=== PATIENT | male | born 1960 | race Caucasian/White ===

== ENCOUNTER 2018-08-03 14:42 | Inpatient (IN) | payer MEDICAID ==
[2018-08-03] MEDS ORDERED: NORMAL SALINE 1000 ML 1,000 ML IV ONE (15:04)
[2018-08-03] MEDS ORDERED: LABETALOL HCL INJ 20 MG/4 ML DISP.SYRIN IV ONE (15:09)
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
--- NOTE | 2018-08-03 15:40 | EKG REPORT ---
SEVERITY:- ABNORMAL ECG - SINUS TACHYCARDIA VENTRICULAR PREMATURE COMPLEX INFERIOR INFARCT, AGE INDETERMINATE : Confirmed by: Kathy Courtney 03-Aug-2018 15:39:56
[2018-08-03 15:49] LABS: VENOUS BLOOD BASE EXCESS -2.1 mmol/L; VENOUS BLOOD HCO3 20.8 mmol/L (20-32); VENOUS BLOOD PCO2 31.4 mmHg (35-63); VENOUS BLOOD PH 7.44 (7.30-7.42)
[2018-08-03 15:50] LABS: ABSOLUTE BASOPHILS # (AUTO) 0.1 10^3/uL (0.0-0.2); ABSOLUTE MONOCYTES (AUTO) 0.8 10^3/uL (0.1-1.4); ABSOLUTE NEUT (AUTO) 5.6 10^3/uL (1.7-8.2); BASOPHILS % (AUTO) 0.9 % (0-2); EOSINOPHILS % (AUTO) 0.4 % (0-6); HEMATOCRIT 44.3 % (37.9-51.0); HEMOGLOBIN 15.6 g/dL (13.5-17.0); LYMPHOCYTES % (AUTO) 23.1 % (13-45); MEAN CORPUSCULAR HEMOGLOBIN 31.7 pg (27.0-33.4); MEAN CORPUSCULAR HGB CONC 35.2 g/dL (32.0-36.0); MEAN CORPUSCULAR VOLUME 90 fl (80-97); PLATELET COUNT 269 10^3/uL (150-450); RED BLOOD COUNT 4.91 10^6/uL (4.35-5.55); RED CELL DISTRIBUTION WIDTH 13.4 % (11.5-14.0); SEGMENTED NEUTROPHILS % (AUTO) 66.6 % (42-78); TOTAL CELLS COUNTED % (AUTO) 100 %; WHITE BLOOD COUNT 8.4 10^3/uL (4.0-10.5)
[2018-08-03 15:56] LABS: INTERNATIONAL RATION (INR) 0.93; PARTIAL THROMBOPLASTIN TIME 26.9 SEC (23.5-35.8); PROTHROMBIN TIME 12.9 SEC (11.4-15.4)
[2018-08-03 16:04] LABS: ALANINE AMINOTRANSFERASE 19 U/L (21-72); ALBUMIN 4.1 g/dL (3.5-5.0); ALKALINE PHOSPHATASE 135 U/L (38-126); ANION GAP 10 (5-19); ASPARTATE AMINO TRANSFERASE 20 U/L (17-59); BILIRUBIN,DIRECT 0.3 mg/dL (0.0-0.4); BILIRUBIN,TOTAL 0.7 mg/dL (0.2-1.3); BLOOD UREA NITROGEN 14 mg/dL (7-20); CALCIUM 9.8 mg/dL (8.4-10.2); CARBON DIOXIDE 24 mmol/L (22-30); CHLORIDE 102 mmol/L (98-107); CHOLESTEROL 190.95 mg/dL (0-200); CREATINE KINASE 112 U/L (55-170); GLUCOSE 381 mg/dL (75-110); POTASSIUM 4.1 mmol/L (3.6-5.0); TOTAL PROTEIN 7.1 g/dL (6.3-8.2); TRIGLYCERIDES 192 mg/dL (<150)
--- NOTE | 2018-08-03 16:08 | RADIOLOGY REPORT (SQ) ---
EXAM DESCRIPTION: CHEST SINGLE VIEW COMPLETED DATE/TIME: 08/03/2018 3:54 pm REASON FOR STUDY: Left-sided weakness COMPARISON: None. EXAM PARAMETERS: NUMBER OF VIEWS: One view. TECHNIQUE: Single frontal radiographic view of the chest acquired. RADIATION DOSE: NA LIMITATIONS: None. FINDINGS: LUNGS AND PLEURA: No acute infiltrates or effusions. MEDIASTINUM AND HILAR STRUCTURES: No masses. Contour normal. HEART AND VASCULAR STRUCTURES: The heart is normal with normal pulmonary vasculature. BONES: No acute findings. HARDWARE: None in the chest. OTHER: Chest leads in place. IMPRESSION: No acute disease. TECHNICAL DOCUMENTATION: JOB ID: [id number] 2010 [employer]- All Rights Reserved Reading location - IP/workstation name: [email or web address]
[2018-08-03 16:15] LABS: DIRECT LDL 144 mg/dL (<100)
[2018-08-03 16:16] LABS: VLDL CHOLESTEROL 38.4 mg/dL (10-31)
[2018-08-03 16:19] LABS: CREATINE KINASE MB 0.83 ng/mL (<4.55)
[2018-08-03 16:22] LABS: TROPONIN I < 0.012 ng/mL
--- NOTE | 2018-08-03 16:22 | RADIOLOGY REPORT (SQ) ---
EXAM DESCRIPTION: CT HEAD WITHOUT COMPLETED DATE/TIME: 08/03/2018 4:01 pm REASON FOR STUDY: Left-sided weakness COMPARISON: None. TECHNIQUE: Axial images acquired through the brain without intravenous contrast. Images reviewed wi th bone, brain and subdural windows. Images stored on PACS. All CT scanners at this facility use dose modulation, iterative reconstruction, and/or weight based d osing when appropriate to reduce radiation dose to as low as reasonably achievable (ALARA). [facility]: Dose Right [facility]: CareDose [facility]: Dose Right [facility]: Teradose 4D [facility]: [employer] Technologies RADIATION DOSE: CT Rad equipment meets quality standard of care and radiation dose reduction techniq ues were employed. CTDIvol: 53.2 mGy. DLP: 1070 mGy-cm. mGy. LIMITATIONS: None. FINDINGS: VENTRICLES: Normal size and contour. CEREBRUM: No masses. No hemorrhage. No midline shift. No evidence for acute infarction. Normal gra y/white matter differentiation. No areas of low density in the white matter. CEREBELLUM: No masses. No hemorrhage. No alteration of density. No evidence for acute infarction. EXTRAAXIAL SPACES: No fluid collections. No masses. ORBITS AND GLOBE: No intra- or extraconal masses. Normal contour of globe without masses. CALVARIUM: No fracture. PARANASAL SINUSES: No fluid or mucosal thickening. SOFT TISSUES: No mass or hematoma. OTHER: No other significant finding. IMPRESSION: NORMAL BRAIN CT WITHOUT CONTRAST. CONSIDERATION FOR MRI FOLLOW-UP WAS DISCUSSED. EVIDENCE OF ACUTE STROKE: NO. COMMENT: The case was discussed with Dr. Richter . Quality ID # [id number]: Final reports with documentation of one or more dose reduction techniques (e.g., Au tomated exposure control, adjustment of the mA and/or kV according to patient size, use of iterative reconstruction technique) TECHNICAL DOCUMENTATION: JOB ID: [id number] 2010 [email or web address]- All Rights Reserved Reading location - IP/workstation name: [email or web address]
[2018-08-03] MEDS ORDERED: INSULIN REG, HUMAN 100 UNIT/ML 3 ML VIAL (PYX) SUBCUT ONE (16:42)
[2018-08-03 17:31] LABS: ALCOHOL < 10 mg/dL (NONE DETECTED)
[2018-08-03 17:39] LABS: APPEARANCE,URINE CLEAR; BILIRUBIN,URINE NEGATIVE (NEGATIVE); COLOR,URINE YELLOW; GLUCOSE, URINE >=500 mg/dL (NEGATIVE); KETONES,URINE 20 mg/dL (NEGATIVE); LEUKOCYTE ESTERASE,URINE NEGATIVE (NEGATIVE); NITRITE,URINE NEGATIVE (NEGATIVE); PROTEIN,URINE 30 mg/dL (NEGATIVE); URINE SPECIFIC GRAVITY 1.035
[2018-08-03 17:53] LABS: URINE AMPHETAMINES SCREEN NEGATIVE; URINE BARBITURATES SCREEN NEGATIVE; URINE BENZODIAZEPINES SCREEN NEGATIVE; URINE COCAINE SCREEN NEGATIVE; URINE MARIJUANA (THC) SCREEN NEGATIVE; URINE METHADONE SCREEN NEGATIVE; URINE PHENCYCLIDINE SCREEN NEGATIVE
--- NOTE | 2018-08-03 18:15 | RADIOLOGY REPORT (SQ) ---
EXAM DESCRIPTION: MRI HEAD WITHOUT COMPLETED DATE/TIME: 08/03/2018 6:01 pm REASON FOR STUDY: stroke like sx's COMPARISON: None. TECHNIQUE: Multiplanar imaging includes non-contrasted T1, T2, FLAIR, and diffusion with ADC map seq uences. Images stored on PACS. LIMITATIONS: None. FINDINGS: ANATOMY: No anomalies. Normal vascular flow voids. Pituitary fossa normal. CSF SPACES: Normal in size and contour. No hemorrhage. CEREBRUM: Sulci and gyri normal in size and contour. Normal white matter signal on FLAIR imaging. No evidence of hemorrhage, mass, or extraaxial fluid collection. POSTERIOR FOSSA: There is a 15 mm area of abnormal diffusion in the right side of the zay. DIFFUSION IMAGING: See above. ORBITS: No masses. Globes normal. PARANASAL SINUSES: No fluid levels. Mucosa normal. OTHER: No other significant finding. IMPRESSION: There is an acute infarction involving the right side of the zay. EVIDENCE OF ACUTE STROKE: Yes RIGHT OUTFITTER CABIN COMMENT: Pertinent findings on the imaging study reported as a CRITICAL RESULT to ANNEL Guy t18:10 on 08/03/2018. TECHNICAL DOCUMENTATION: JOB ID: [id number] [employer]- All Rights Reserved Reading location - IP/workstation name: [email or web address]
[2018-08-03] MEDS ORDERED: DOCUSATE SODIUM 100 MG CAPSULE PO PRN (23:11)
[2018-08-03] MEDS ORDERED: MAGNESIUM HYDROXIDE SUSP 30 ML UDCUP PO PRN (23:11)
[2018-08-03] MEDS ORDERED: ONDANSETRON 4 MG TAB.RAPDIS PO PRN (23:11)
[2018-08-03] MEDS ORDERED: LABETALOL HCL INJ 20 MG/4 ML DISP.SYRIN IV PRN (23:11)
[2018-08-03] MEDS ORDERED: ACETAMINOPHEN 650 MG SUPP.RECT PR PRN (23:11)
[2018-08-03] MEDS ORDERED: ONDANSETRON HCL INJ/PF 4 MG/2 ML SDV IV PRN (23:11)
[2018-08-03] MEDS ORDERED: DEXTROSE 40% GEL 15 GM TUBE PO PRN ×2 (23:18)
[2018-08-03] MEDS ORDERED: GLUCAGON,HUMAN RECOMB 1 MG INJ IM PRN (23:18)
[2018-08-03] MEDS ORDERED: DEXTROSE 50%-WATER 25 GM/50 ML DISP.SYRIN IV PRN ×2 (23:18)
[2018-08-04] MEDS: INSULIN REG, HUMAN 100 UNIT/ML 3 ML VIAL (PYX) SUBCUT PRN ×5 (01:55→23:43)
[2018-08-04] MEDS: NICOTINE 21 MG/24 HR PATCH.TD24 TD PRN (02:44)
--- NOTE | 2018-08-04 04:22 | PDOC H&P ---
History of Present Illness Admission Date/PCP: 08/03/18 18:24 Patient complains of: Left-sided weakness History of Present Illness: MEHREEN ERICKSON is a 58 year old male with a two day history of continuous left- sided weakness. He admits that he awoke 2 days ago (08/01/2018) with weakness affecting his left upper and lower extremities. The effect was such that he had difficulty with ambulation due to "weakness and numbness" in his left leg. The numbness has been constant and unchanged in location or severity since onset and is rated as moderate to severe by the patient. He denies associated symptoms and has not had prior similar episodes. He has not identified any aggravating or ameliorating factors for his left-sided weakness or "numbness". He admits a past medical history of hypertension, diabetes, tobacco addiction and medical noncompliance. In the emergency room he was found to have an acute right posterior cerebral artery infarction involving the pontine structures. He was subsequently admitted for further evaluation and treatment on the stroke protocol program. Past Medical History Cardiac Medical History: Reports: Hypertension Denies: Coronary Artery Disease, DVT, Pulmonary Embolism Pulmonary Medical History: Denies: Asthma, Chronic Obstructive Pulmonary Disease (COPD) EENT Medical History: Reports: Cataracts - Juvenile cataracts removed as a child, Throat - Frequent sore throats as a child, Other - Tonsillectomy as a child Neurological Medical History: Denies: Migraine, Seizures Endocrine Medical History: Reports: Diabetes Mellitus Type 2 Denies: Hyperthyroidism, Hypothyroidism, Obesity Renal/ Medical History: Denies: Chronic Kidney Disease, Nephrolithiasis Malignancy Medical History: Reports: None GI Medical History: Denies: Cirrhosis, Hepatitis Musculoskeltal Medical History: Denies: Arthritis, Gout Skin Medical History: Reports: Other - Extensive krishna in remote past affecting the left upper extremity Denies: Eczema, Psoriasis Psychiatric Medical History: Reports: Depression, Tobacco Dependency Denies: Alcohol Dependency, Substance Abuse Traumatic Medical History: Reports: None Hematology: Denies: Anemia, Bleeding Tendencies Infectious Medical History: Reports: None Past Surgical History Past Surgical History: Reports: Tonsillectomy, Other - Bilateral cataract extractions with lens replacement, multiple skin grafts Social History Information Source: Patient Lives with: Alone Smoking Status: Current Every Day Smoker Cigarettes Packs Per Day: 1 Frequency of Alcohol Use: Social Hx Recreational Drug Use: No Drugs: None Hx Prescription Drug Abuse: No - Advance Directive Resuscitation Status: Full Code Surrogate healthcare decision maker:: None given Family History Family History: Patient was given up for adoption as a baby and lived as a foster child thro ughout his childhood. He has unaware of his natural mother or father or any of his natural family history. Parental Family History Reviewed: No Children Family History Reviewed: No Sibling(s) Family History Reviewed.: No Medication/Allergy Allergies/Adverse Reactions: No Known Allergies Allergy (Unverified 08/03/18 15:31) Review of Systems Constitutional: ABSENT: chills, fever(s), headache(s) Eyes: ABSENT: visual disturbances, other - Eye pain Ears: ABSENT: hearing changes, other - Ear pain Nose, Mouth, and Throat: ABSENT: mouth pain, sore throat Cardiovascular: ABSENT: chest pain, dyspnea on exertion, edema, orthropnea, palpitations Respiratory: ABSENT: cough, dyspnea Gastrointestinal: ABSENT: abdominal pain, constipation, diarrhea, nausea, vomiting Genitourinary: ABSENT: dysuria, hematuria Musculoskeletal: PRESENT: as per HPI, deformity - Left upper extremity status post extensive krishna, muscle weakness - Left sided weakness in both upper and lower extremities. ABSENT: back pain, joint swelling Integumentary: ABSENT: pruritus, rash Neurological: PRESENT: abnormal gait - Left leg weak and gives out with walking/weightbearing.. ABSENT: confusion, convulsions, memory loss, syncope, vertigo Psychiatric: ABSENT: anxiety, depression Endocrine: ABSENT: cold intolerance, heat intolerance Hematologic/Lymphatic: ABSENT: easy bleeding, easy bruising Physical Exam Vital Signs: Temp Pulse Resp BP Pulse Ox 87 18 165/86 H 97 08/03/18 20:38 08/03/18 20:23 08/03/18 20:23 08/03/18 20:23 Intake & Output 08/01/18 08/02/18 08/03/18 23:59 23:59 23:59 Intake Total 1000 Balance 1000 Weight 74.843 kg General appearance: PRESENT: no acute distress, cooperative Head exam: PRESENT: atraumatic, normocephalic Eye exam: PRESENT: EOMI. ABSENT: conjunctival injection, scleral icterus Ear exam: PRESENT: normal external ear exam. ABSENT: bleeding, drainage Mouth exam: PRESENT: dry mucosa, neck supple Neck exam: PRESENT: full ROM. ABSENT: carotid bruit, JVD, lymphadenopathy, meningismus, tenderness, thyromegaly, tracheal deviation Respiratory exam: PRESENT: clear to auscultation matilde, symmetrical, unlabored Cardiovascular exam: PRESENT: RRR. ABSENT: clicks, diastolic murmur, gallop, ru bs, systolic murmur Pulses: PRESENT: normal radial pulses, normal dorsalis pedis pul Vascular exam: PRESENT: normal capillary refill. ABSENT: pallor GI/Abdominal exam: PRESENT: normal bowel sounds, soft Rectal exam: PRESENT: deferred Extremities exam: ABSENT: joint swelling, pedal edema Musculoskeletal exam: PRESENT: deformity - Left hand status post multiple krishna with severe contractures of the fourth and fifth fingers and significant reduction in range of motion of the first second and third digits of the left hand., other - Significant weakness present on the left side with left upper extremity showing minimal ability to elevate at the shoulder and left lower extremity showing significant weakness in both flexion and extension throughout the limb. Proprioception is grossly intact bilaterally.. ABSENT: ambulatory, dislocation, tenderness Neurological exam: PRESENT: alert, oriented to person, oriented to place, oriented to time, oriented to situation, CN II-XII grossly intact, motor sensory deficit - See musculoskeletal exam above Psychiatric exam: PRESENT: appropriate affect, normal mood Skin exam: PRESENT: dry, intact, warm, other - Well-healed scars from skin grafts involving the left forearm and hand. ABSENT: jaundice, rash, urticaria Results Laboratory Results: 08/03/18 15:30 08/03/18 15:30 08/03/18 08/03/18 08/03/18 15:30 15:30 15:30 WBC 8.4 RBC 4.91 Hgb 15.6 Hct 44.3 MCV 90 MCH 31.7 MCHC 35.2 RDW 13.4 Plt Count 269 Seg Neutrophils % 66.6 Lymphocytes % 23.1 Monocytes % 9.0 Eosinophils % 0.4 Basophils % 0.9 Absolute Neutrophils 5.6 Absolute Lymphocytes 2.0 Absolute Monocytes 0.8 Absolute Eosinophils 0.0 Absolute Basophils 0.1 VBG pH 7.44 H VBG pCO2 31.4 L VBG HCO3 20.8 VBG Base Excess -2.1 Sodium 136.0 L Potassium 4.1 Chloride 102 Carbon Dioxide 24 Anion Gap 10 BUN 14 Creatinine 0.49 L Est GFR ( Amer) > 60 Est GFR (Non-Af Amer) > 60 Glucose 381 H Calcium 9.8 Total Bilirubin 0.7 AST 20 ALT 19 L Alkaline Phosphatase 135 H Total Protein 7.1 Albumin 4.1 Triglycerides 192 H Cholesterol 190.95 LDL Cholesterol Direct 144 H VLDL Cholesterol 38.4 H HDL Cholesterol 40 Urine Color Urine Appearance Urine pH Ur Specific [place] Urine Protein Urine Glucose (UA) Urine Ketones Urine Blood Urine Nitrite Ur Leukocyte Esterase Urine WBC (Auto) Urine RBC (Auto) 08/03/18 17:30 WBC RBC Hgb Hct MCV MCH MCHC RDW Plt Count Seg Neutrophils % Lymphocytes % Monocytes % Eosinophils % Basophils % Absolute Neutrophils Absolute Lymphocytes Absolute Monocytes Absolute Eosinophils Absolute Basophils VBG pH VBG pCO2 VBG HCO3 VBG Base Excess Sodium Potassium Chloride Carbon Dioxide Anion Gap BUN Creatinine Est GFR ( Amer) Est GFR (Non-Af Amer) Glucose Calcium Total Bilirubin AST ALT Alkaline Phosphatase Total Protein Albumin Triglycerides Cholesterol LDL Cholesterol Direct VLDL Cholesterol HDL Cholesterol Urine Color YELLOW Urine Appearance CLEAR Urine pH 6.0 Ur Specific [place] 1.035 Urine Protein 30 H Urine Glucose (UA) >=500 H Urine Ketones 20 H Urine Blood NEGATIVE Urine Nitrite NEGATIVE Ur Leukocyte Esterase NEGATIVE Urine WBC (Auto) 1 Urine RBC (Auto) 0 08/03/18 08/03/18 15:30 15:30 Creatine Kinase 112 CK-MB (CK-2) 0.83 Troponin I < 0.012 Impressions: Chest X-Ray 08/03/18 15:03 IMPRESSION: No acute disease. Head CT 08/03/18 15:03 IMPRESSION: NORMAL BRAIN CT WITHOUT CONTRAST. CONSIDERATION FOR MRI FOLLOW- UP WAS DISCUSSED. EVIDENCE OF ACUTE STROKE: NO. Head MRI 08/03/18 16:16 IMPRESSION: There is an acute infarction involving the right side of the zay. 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 (2) Diabetes mellitus type 2 in nonobese Is this a current diagnosis for this admission?: Yes Plan: Patient's hemoglobin A1c was 10.5. His diabetic therapy will be changed to Lantus starting at 12 units subcu twice daily and sliding scale regular insulin before meals and at bedtime. A dietary consultation will be obtained to better educate the patient for care of his diabetes and hypertension. (3) Hypertension Qualifiers: Hypertension type: unspecified Qualified Code(s): I10 - Essential (primary) hypertension Is this a current diagnosis for this admission?: Yes Plan: Patient will be returned to his recommended antihypertensive therapy. This will be reevaluated over his hospital course for efficacy and adjustments made as required. (4) Tobacco use disorder, moderate, dependence Is this a current diagnosis for this admission?: Yes Plan: Patient has been advised to quit smoking. Smoking cessation counseling has been provided and he will have available a nicotine replacement patch should he wish to use it. - Time Time Spent: 30 to 50 Minutes Critical Time spent with patient: Less than 15 minutes Smoking Cessation Education: 3 to 10 minutes Medications reviewed and adjusted accordingly: Yes Anticipated discharge: Home with Homehealth, SNF, Acute Rehab - Inpatient Certification Based on my medical assessment, after consideration of the patient's comorbidities, presenting symptoms, or acuity I expect that the services needed warrant INPATIENT care.: Yes I certify that my determination is in accordance with my understanding of Medicare's requirements for reasonable and necessary INPATIENT services [42 CFR 412.3e].: Yes Medical Necessity: Significant Comorbidiites Make Outpatient Treatment Too Risky, Need Close Monitoring Due to Risk of Patient Decompensation, Need for Neurological Checks, Risk of Complication if Not Cared For in Hospital
[2018-08-04] MEDS: HEPARIN SOD (PORCINE) 5,000 UNIT/ML 1 ML SYRINGE SUBCUT SCH ×3 (05:17→21:30)
[2018-08-04 05:24] LABS: HEMATOCRIT 42.3 % (37.9-51.0); HEMOGLOBIN 14.8 g/dL (13.5-17.0); MEAN CORPUSCULAR HEMOGLOBIN 31.6 pg (27.0-33.4); MEAN CORPUSCULAR HGB CONC 35.1 g/dL (32.0-36.0); MEAN CORPUSCULAR VOLUME 90 fl (80-97); PLATELET COUNT 270 10^3/uL (150-450); RED CELL DISTRIBUTION WIDTH 13.2 % (11.5-14.0)
[2018-08-04 06:41] LABS: ANION GAP 8 (5-19); BLOOD UREA NITROGEN 14 mg/dL (7-20); CALCIUM 9.8 mg/dL (8.4-10.2); CARBON DIOXIDE 24 mmol/L (22-30); CHLORIDE 106 mmol/L (98-107); CHOLESTEROL 173.81 mg/dL (0-200); GLUCOSE 209 mg/dL (75-110); POTASSIUM 3.7 mmol/L (3.6-5.0); SODIUM 137.7 mmol/L (137-145); TRIGLYCERIDES 167 mg/dL (<150)
[2018-08-04 06:52] LABS: DIRECT LDL 120 mg/dL (<100)
[2018-08-04 06:54] LABS: VLDL CHOLESTEROL 33.4 mg/dL (10-31)
[2018-08-04] MEDS: ASPIRIN/DIPYRIDAMOLE 25-200 MG 1 CAP.SR CPMP.12HR PO SCH ×2 (09:19→21:31)
[2018-08-04] MEDS: FAMOTIDINE 20 MG TABLET PO SCH ×2 (09:19→21:30)
[2018-08-04] MEDS: INSULIN GLARGINE,HUM.REC.ANLOG 300 UNIT/3 ML INSULN.PEN SUBCUT SCH ×2 (10:43→21:29)
[2018-08-04] MEDS: ACETAMINOPHEN 325 MG TABLET PO PRN (15:34)
--- NOTE | 2018-08-04 16:30 | PDOC PROGRESS REPORT ---
Subjective Progress Note for:: 08/04/18 Subjective:: No adverse events overnight. No new complaints. He passed a swallow evaluation is not had any trouble swallowing. Said he still does not have much use of his left arm. Said he feels like he has to drag his left leg when he walks but he still has sensation in that leg. He denies any palpitations. He says he has no history of cardiac arrhythmia. He has had no evidence of an arrhythmia on the monitor. Reason For Visit: ACUTE RIGHT POSTERIOR CEREBRAL ARTERY INFARCTION Physical Exam Vital Signs: Temp Pulse Resp BP Pulse Ox 97.4 F 89 18 175/94 H 99 08/04/18 11:28 08/04/18 12:00 08/04/18 12:00 08/04/18 12:00 08/04/18 12:00 Intake & Output 08/03/18 08/04/18 08/05/18 06:59 06:59 06:59 Intake Total 1000 Output Total 125 Balance 875 Weight 80.9 kg General appearance: PRESENT: no acute distress, cooperative, disheveled Eye exam: PRESENT: EOMI, PERRLA Respiratory exam: PRESENT: clear to auscultation matilde, symmetrical, unlabored. ABSENT: accessory muscle use, rales, rhonchi, tachypnea, wheezes Cardiovascular exam: PRESENT: RRR, +S1, +S2 Vascular exam: PRESENT: normal capillary refill GI/Abdominal exam: PRESENT: normal bowel sounds, soft. ABSENT: distended, guar ding, rebound, tenderness Extremities exam: ABSENT: clubbing, pedal edema Musculoskeletal exam: PRESENT: normal inspection. ABSENT: deformity Neurological exam: PRESENT: alert, awake, oriented to person, oriented to place, oriented to time, oriented to situation, motor sensory deficit - He has a little bit of a right-sided facial droop but his speech is normal. He has 3 out of 5 strength at the left shoulder and elbow, and 1 to 2 out of 5 absence management consultant strength in the left hand. He can lift his left leg up against gravity but cannot hold it up. Psychiatric exam: PRESENT: appropriate affect, normal mood Skin exam: PRESENT: dry, warm Results Laboratory Results: 08/04/18 04:22 08/04/18 04:22 08/03/18 08/03/18 08/04/18 15:30 17:30 04:22 WBC 10.0 RBC 4.70 Hgb 14.8 Hct 42.3 MCV 90 MCH 31.6 MCHC 35.1 RDW 13.2 Plt Count 270 Sodium 136.0 L Potassium 4.1 Chloride 102 Carbon Dioxide 24 Anion Gap 10 BUN 14 Creatinine 0.49 L Est GFR ( Amer) > 60 Est GFR (Non-Af Amer) > 60 Glucose 381 H Calcium 9.8 Total Bilirubin 0.7 AST 20 ALT 19 L Alkaline Phosphatase 135 H Total Protein 7.1 Albumin 4.1 Triglycerides 192 H Cholesterol 190.95 LDL Cholesterol Direct 144 H VLDL Cholesterol 38.4 H HDL Cholesterol 40 Urine Color YELLOW Urine Appearance CLEAR Urine pH 6.0 Ur Specific [place] 1.035 Urine Protein 30 H Urine Glucose (UA) >=500 H Urine Ketones 20 H Urine Blood NEGATIVE Urine Nitrite NEGATIVE Ur Leukocyte Esterase NEGATIVE Urine WBC (Auto) 1 Urine RBC (Auto) 0 08/04/18 04:22 WBC RBC Hgb Hct MCV MCH MCHC RDW Plt Count Sodium 137.7 Potassium 3.7 Chloride 106 Carbon Dioxide 24 Anion Gap 8 BUN 14 Creatinine 0.56 Est GFR ( Amer) > 60 Est GFR (Non-Af Amer) > 60 Glucose 209 H Calcium 9.8 Total Bilirubin AST ALT Alkaline Phosphatase Total Protein Albumin Triglycerides 167 H Cholesterol 173.81 LDL Cholesterol Direct 120 H VLDL Cholesterol 33.4 H HDL Cholesterol 32 L Urine Color Urine Appearance Urine pH Ur Specific [place] Urine Protein Urine Glucose (UA) Urine Ketones Urine Blood Urine Nitrite Ur Leukocyte Esterase Urine WBC (Auto) Urine RBC (Auto) 08/03/18 08/03/18 15:30 15:30 Creatine Kinase 112 CK-MB (CK-2) 0.83 Troponin I < 0.012 Impressions: Chest X-Ray 08/03/18 15:03 IMPRESSION: No acute disease. Head CT 08/03/18 15:03 IMPRESSION: NORMAL BRAIN CT WITHOUT CONTRAST. CONSIDERATION FOR MRI FOLLOW- UP WAS DISCUSSED. EVIDENCE OF ACUTE STROKE: NO. Head MRI 08/03/18 16:16 IMPRESSION: There is an acute infarction involving the right side of the zay. EVIDENCE OF ACUTE STROKE: Yes RIGHT ECONOMETRICIAN Assessment & Plan - Diagnosis (1) Acute ischemic right posterior cerebral artery (ECONOMETRICIAN) stroke Is this a current diagnosis for this admission?: Yes Plan: Were getting an MRA of the head and neck to complete his stroke workup. Echocardiogram has not been ordered because he does not have any evidence of an embolic stroke. He is also have no evidence of arrhythmia or any history of an arrhythmia. Order has been placed for consult for acute rehab. Permissive hypertension for now. We will work to get his blood sugar under better control. Continue Aggrenox and statin. (2) Diabetes mellitus type 2 in nonobese Is this a current diagnosis for this admission?: Yes Plan: Currently on a sliding scale. Will probably need to adjust his coverage further. (3) Hypertension Qualifiers: Hypertension type: unspecified Qualified Code(s): I10 - Essential (primary) hypertension Is this a current diagnosis for this admission?: Yes Plan: Currently permissive hypertension. Tomorrow we will probably start lowering his blood pressure little bit more. - Time Time Spent with patient: 15-24 minutes
--- NOTE | 2018-08-04 16:59 | RADIOLOGY REPORT (SQ) ---
EXAM DESCRIPTION: MRA NECK WITHOUT COMPLETED DATE/TIME: 08/04/2018 4:43 pm REASON FOR STUDY: acute CVA COMPARISON: None. TECHNIQUE: Axial 2-D volume acquisition imaging through the extracranial carotid and vertebral arter ies with reformatting using 3-D MIPS. LIMITATIONS: None. FINDINGS: RIGHT CAROTID ARTERY: No stenosis or occlusive changes. Limited visualization of the orig in. LEFT CAROTID ARTERY: No stenosis or occlusive changes. Limited visualization of the origin. VERTEBRAL ARTERY: B left vertebral and basilar artery are normal. The right vertebral is not identif ied. Either hypoplastic, occluded, or with reverse flow. . OTHER: No other significant finding. IMPRESSION: NO SIGNIFICANT STENOSIS. Basal artery and left vertebral artery widely patent. Nonvisu alization of the right vertebral. COMMENT: Quality ID #[id number]: Measurements of distal internal carotid diameter were used as the denomin ator for stenosis measurement. TECHNICAL DOCUMENTATION: JOB ID: [id number] [employer]- All Rights Reserved Reading location - IP/workstation name: [email or web address]
--- NOTE | 2018-08-04 17:04 | RADIOLOGY REPORT (SQ) ---
EXAM DESCRIPTION: MRA HEAD WITHOUT COMPLETED DATE/TIME: 08/04/2018 4:43 pm REASON FOR STUDY: acute CVA COMPARISON: None. TECHNIQUE: Axial 3-D [id number] acquisition imaging performed through the brain in the area of t he [place]. Images reformatted using 3-D MIPS. LIMITATIONS: None. FINDINGS: SOURCE IMAGES: No unexpected findings on source images. No large masses. 3-D MIP: No aneurysm. No occlusions. No significant stenosis. OTHER: No other significant finding. IMPRESSION: NORMAL MRA OF THE [place]. TECHNICAL DOCUMENTATION: JOB ID: [id number] [employer]- All Rights Reserved Reading location - IP/workstation name: [email or web address]
[2018-08-04] MEDS: ATORVASTATIN CALCIUM 10 MG TABLET PO SCH (21:31)
[2018-08-05 05:06] LABS: HEMATOCRIT 40.8 % (37.9-51.0); HEMOGLOBIN 14.3 g/dL (13.5-17.0); MEAN CORPUSCULAR HEMOGLOBIN 31.4 pg (27.0-33.4); MEAN CORPUSCULAR HGB CONC 35.1 g/dL (32.0-36.0); MEAN CORPUSCULAR VOLUME 90 fl (80-97); PLATELET COUNT 251 10^3/uL (150-450); RED BLOOD COUNT 4.56 10^6/uL (4.35-5.55); WHITE BLOOD COUNT 8.8 10^3/uL (4.0-10.5)
[2018-08-05 05:33] LABS: ANION GAP 8 (5-19); BLOOD UREA NITROGEN 16 mg/dL (7-20); CALCIUM 9.3 mg/dL (8.4-10.2); CARBON DIOXIDE 24 mmol/L (22-30); CHLORIDE 107 mmol/L (98-107); GLUCOSE 197 mg/dL (75-110); SODIUM 139.3 mmol/L (137-145)
[2018-08-05 05:39] LABS: POTASSIUM 3.8 mmol/L (3.6-5.0)
[2018-08-05] MEDS: HEPARIN SOD (PORCINE) 5,000 UNIT/ML 1 ML SYRINGE SUBCUT SCH ×3 (06:21→21:12)
[2018-08-05] MEDS: NICOTINE 21 MG/24 HR PATCH.TD24 TD PRN (06:36)
[2018-08-05] MEDS: ACETAMINOPHEN 325 MG TABLET PO PRN ×2 (08:29→15:53)
[2018-08-05] MEDS: INSULIN REG, HUMAN 100 UNIT/ML 3 ML VIAL (PYX) SUBCUT PRN ×4 (08:31→21:51)
[2018-08-05] MEDS: FAMOTIDINE 20 MG TABLET PO SCH ×2 (09:23→21:16)
[2018-08-05] MEDS: ASPIRIN/DIPYRIDAMOLE 25-200 MG 1 CAP.SR CPMP.12HR PO SCH ×2 (09:23→21:16)
[2018-08-05] MEDS: INSULIN GLARGINE,HUM.REC.ANLOG 300 UNIT/3 ML INSULN.PEN SUBCUT SCH ×2 (09:24→21:14)
[2018-08-05] MEDS ORDERED: LISINOPRIL 5 MG TABLET PO ONE (13:37)
--- NOTE | 2018-08-05 16:43 | PDOC PROGRESS REPORT ---
Subjective Progress Note for:: 08/05/18 Subjective:: No adverse events overnight. He said he feels like his left leg strength is little bit better and he walks 60 feet with physical therapy today, but he feels like his left arm is unchanged from yesterday. His blood pressure come down some this morning but is risen back up as the day is going on. He has no headache or visual changes. Reason For Visit: ACUTE RIGHT POSTERIOR CEREBRAL ARTERY INFARCTION Physical Exam Vital Signs: Temp Pulse Resp BP Pulse Ox 98.3 F 88 16 145/76 H 96 08/05/18 15:15 08/05/18 16:00 08/05/18 16:00 08/05/18 16:00 08/05/18 16:00 Intake & Output 08/04/18 08/05/18 08/06/18 06:59 06:59 06:59 Intake Total 1000 360 592 Output Total 125 2025 200 Balance 875 -1665 392 Weight 80.9 kg 81.6 kg General appearance: PRESENT: no acute distress, cooperative, disheveled Eye exam: PRESENT: EOMI, PERRLA Respiratory exam: PRESENT: clear to auscultation matilde, symmetrical, unlabored. ABSENT: accessory muscle use, rales, rhonchi, tachypnea, wheezes Cardiovascular exam: PRESENT: RRR, +S1, +S2 Vascular exam: PRESENT: normal capillary refill GI/Abdominal exam: PRESENT: normal bowel sounds, soft. ABSENT: distended, guarding, rebound, tenderness Extremities exam: ABSENT: clubbing, pedal edema. He does have some possible trace right lower extremity edema compared to the left Musculoskeletal exam: PRESENT: normal inspection. ABSENT: deformity Neurological exam: PRESENT: alert, awake, oriented to person, oriented to place, oriented to time, oriented to situation, motor sensory deficit - He has a little bit of a right-sided facial droop but his speech is normal. He has 3 out of 5 strength at the left shoulder and elbow, and 1 to 2 out of 5 gardener florist strength in the left hand. He can lift his left leg up against gravity and hold it up a few inches off the chair for several seconds Psychiatric exam: PRESENT: appropriate affect, normal mood Skin exam: PRESENT: dry, warm Results Laboratory Results: 08/05/18 04:54 08/05/18 04:54 08/05/18 08/05/18 04:54 04:54 WBC 8.8 RBC 4.56 Hgb 14.3 Hct 40.8 MCV 90 MCH 31.4 MCHC 35.1 RDW 13.0 Plt Count 251 Sodium 139.3 Potassium 3.8 Chloride 107 Carbon Dioxide 24 Anion Gap 8 BUN 16 Creatinine 0.54 Est GFR ( Amer) > 60 Est GFR (Non-Af Amer) > 60 Glucose 197 H Calcium 9.3 08/03/18 08/03/18 15:30 15:30 Creatine Kinase 112 CK-MB (CK-2) 0.83 Troponin I < 0.012 Impressions: Chest X-Ray 08/03/18 15:03 IMPRESSION: No acute disease. Head CT 08/03/18 15:03 IMPRESSION: NORMAL BRAIN CT WITHOUT CONTRAST. CONSIDERATION FOR MRI FOLLOW- UP WAS DISCUSSED. EVIDENCE OF ACUTE STROKE: NO. Head MRI 08/03/18 16:16 IMPRESSION: There is an acute infarction involving the right side of the zay. 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 Neck MRA 08/04/18 00:00 IMPRESSION: NO SIGNIFICANT STENOSIS. Basal artery and left vertebral artery widely patent. Nonvisualization of the right vertebral. Assessment & Plan - Diagnosis (1) Acute ischemic right posterior cerebral artery (LIVESTOCK SALES REPRESENTATIVE) stroke Is this a current diagnosis for this admission?: Yes Plan: MRA of the neck showed what could be an occluded right vertebral artery, echocardiogram has not been ordered because he does not have any evidence of an embolic stroke. He is also have no evidence of arrhythmia or any history of an arrhythmia. Order has been placed for consult for acute rehab. He was on lisinopril and HCTZ at home, I have restarted lisinopril little bit lower dose of what he was on at home. We will work to get his blood sugar under better control, I have increased his Lantus. Continue Aggrenox and statin. (2) Diabetes mellitus type 2 in nonobese Is this a current diagnosis for this admission?: Yes Plan: Currently on a sliding scale. I increased his Lantus dosing today. (3) Hypertension Qualifiers: Hypertension type: unspecified Qualified Code(s): I10 - Essential (primary) hypertension Is this a current diagnosis for this admission?: Yes Plan: Restarted his home lisinopril little bit lower dose of what he was on at home. (4) Right leg swelling Is this a current diagnosis for this admission?: Yes Plan: Ordered a venous Doppler ultrasound to evaluate for DVT - Time Time Spent with patient: 15-24 minutes
--- NOTE | 2018-08-05 19:42 | RADIOLOGY REPORT (SQ) ---
EXAM DESCRIPTION: VENOUS UNILATERAL LOWER COMPLETED DATE/TIME: 08/05/2018 7:32 pm REASON FOR STUDY: right leg edema COMPARISON: None. TECHNIQUE: Dynamic and static singleton scale and color images acquired of the right leg venous system. S elected spectral images acquired with additional compression and augmentation maneuvers. The contrala teral common femoral vein and saphenofemoral junction were also imaged. Images stored on PACS. LIMITATIONS: None. FINDINGS: COMMON FEMORAL: Normal phasicity, compression and augmentation. No visualized echogenic ma terial on singleton scale. No defects on color images. FEMORAL: Normal compression and augmentation. No visualized echogenic material on singleton scale. No defe cts on color images. POPLITEAL: Normal compression, augmentation. No visualized echogenic material on singleton scale. No defec ts on color images. CALF VESSELS: Normal compression, augmentation. No visualized echogenic material on singleton scale. No de fects on color images. GSV and SSV: Normal compression, augmentation. No visualized echogenic material on singleton scale. No def ects on color images. ANY DEEP VENOUS INSUFFICIENCY: Not evaluated. ANY EVIDENCE OF POPLITEAL CYST: No. OTHER: No other significant finding. CONTRALATERAL COMMON FEMORAL VEIN AND SAPHENOFEMORAL JUNCTION: Normal phasicity, compression and augmentation. No visualized echogenic material on singleton scale. No de fects on color images. IMPRESSION: NO EVIDENCE DVT OR SVT IN THE RIGHT LEG. TECHNICAL DOCUMENTATION: JOB ID: [id number] [email or web address]- All Rights Reserved Reading location - IP/workstation name: [email or web address]
[2018-08-05] MEDS: ATORVASTATIN CALCIUM 10 MG TABLET PO SCH (21:16)
[2018-08-05] MEDS: TRAMADOL HCL 50 MG TABLET PO PRN (21:50)
[2018-08-06 04:49] LABS: HEMOGLOBIN 14.2 g/dL (13.5-17.0); MEAN CORPUSCULAR HEMOGLOBIN 31.7 pg (27.0-33.4); MEAN CORPUSCULAR HGB CONC 35.5 g/dL (32.0-36.0); MEAN CORPUSCULAR VOLUME 89 fl (80-97); PLATELET COUNT 264 10^3/uL (150-450); RED BLOOD COUNT 4.49 10^6/uL (4.35-5.55); RED CELL DISTRIBUTION WIDTH 13.2 % (11.5-14.0); WHITE BLOOD COUNT 9.1 10^3/uL (4.0-10.5)
[2018-08-06 05:15] LABS: ANION GAP 9 (5-19); BLOOD UREA NITROGEN 20 mg/dL (7-20); CALCIUM 9.3 mg/dL (8.4-10.2); CARBON DIOXIDE 24 mmol/L (22-30); CHLORIDE 104 mmol/L (98-107); GLUCOSE 240 mg/dL (75-110); POTASSIUM 3.8 mmol/L (3.6-5.0); SODIUM 137.4 mmol/L (137-145)
[2018-08-06] MEDS: HEPARIN SOD (PORCINE) 5,000 UNIT/ML 1 ML SYRINGE SUBCUT SCH ×3 (06:10→21:23)
[2018-08-06] MEDS: TRAMADOL HCL 50 MG TABLET PO PRN ×3 (06:12→20:25)
[2018-08-06] MEDS: INSULIN REG, HUMAN 100 UNIT/ML 3 ML VIAL (PYX) SUBCUT PRN ×4 (06:51→21:22)
[2018-08-06] MEDS: LISINOPRIL 10 MG TABLET PO SCH (09:29)
[2018-08-06] MEDS: INSULIN GLARGINE,HUM.REC.ANLOG 300 UNIT/3 ML INSULN.PEN SUBCUT SCH ×2 (09:29→21:24)
[2018-08-06] MEDS: NICOTINE 21 MG/24 HR PATCH.TD24 TD PRN (09:29)
[2018-08-06] MEDS: FAMOTIDINE 20 MG TABLET PO SCH ×2 (09:29→21:22)
[2018-08-06] MEDS: ASPIRIN/DIPYRIDAMOLE 25-200 MG 1 CAP.SR CPMP.12HR PO SCH ×2 (09:29→21:22)
[2018-08-06] MEDS: METFORMIN HCL 500 MG TABLET PO SCH (16:18)
--- NOTE | 2018-08-06 16:29 | PDOC PROGRESS REPORT ---
Subjective Progress Note for:: 08/06/18 Subjective:: No adverse events overnight. He said he did feels like he is got better use of his left leg and walked 80 feet with physical therapy today. He says he feels like he can actually step higher and bring his leg up when he walks. He said he feels like he is got a little bit better use of his left upper extremity, and while he does not have much hammer repairer he says he feels like his got more movement in his fingers today. Reason For Visit: ACUTE RIGHT POSTERIOR CEREBRAL ARTERY INFARCTION Physical Exam Vital Signs: Temp Pulse Resp BP Pulse Ox 98.3 F 93 18 115/73 97 08/06/18 15:20 08/06/18 15:20 08/06/18 15:20 08/06/18 15:20 08/06/18 15:20 Intake & Output 08/05/18 08/06/18 08/07/18 06:59 06:59 06:59 Intake Total 360 1312 237 Output Total 5 1000 100 Balance -1665 312 137 Weight 81.6 kg 82.7 kg General appearance: PRESENT: no acute distress, cooperative, disheveled Eye exam: PRESENT: EOMI, PERRLA Respiratory exam: PRESENT: clear to auscultation matilde, symmetrical, unlabored. ABSENT: accessory muscle use, rales, rhonchi, tachypnea, wheezes Cardiovascular exam: PRESENT: RRR, +S1, +S2 Vascular exam: PRESENT: normal capillary refill GI/Abdominal exam: PRESENT: normal bowel sounds, soft. ABSENT: distended, guarding, rebound, tenderness Extremities exam: ABSENT: clubbing, pedal edema. He does have some possible trace right lower extremity edema compared to the left Musculoskeletal exam: PRESENT: normal inspection. ABSENT: deformity Neurological exam: PRESENT: alert, awake, oriented to person, oriented to place, oriented to time, oriented to situation, motor sensory deficit - He has a little bit of a right-sided facial droop but his speech is normal. He has 3 out of 5 strength at the left shoulder and elbow, and 2 out of 5 hammer repairer strength in the left hand. He can lift his left leg up against gravity and hold it up several inches off the chair for several seconds Psychiatric exam: PRESENT: appropriate affect, normal mood Skin exam: PRESENT: dry, warm Results Laboratory Results: 08/06/18 04:26 08/06/18 04:26 08/06/18 08/06/18 04:26 04:26 WBC 9.1 RBC 4.49 Hgb 14.2 Hct 40.0 MCV 89 MCH 31.7 MCHC 35.5 RDW 13.2 Plt Count 264 Sodium 137.4 Potassium 3.8 Chloride 104 Carbon Dioxide 24 Anion Gap 9 BUN 20 Creatinine 0.59 Est GFR ( Amer) > 60 Est GFR (Non-Af Amer) > 60 Glucose 240 H Calcium 9.3 08/03/18 08/03/18 15:30 15:30 Creatine Kinase 112 CK-MB (CK-2) 0.83 Troponin I < 0.012 Impressions: Chest X-Ray 08/03/18 15:03 IMPRESSION: No acute disease. Head CT 08/03/18 15:03 IMPRESSION: NORMAL BRAIN CT WITHOUT CONTRAST. CONSIDERATION FOR MRI FOLLOW- UP WAS DISCUSSED. EVIDENCE OF ACUTE STROKE: NO. Head MRI 08/03/18 16:16 IMPRESSION: There is an acute infarction involving the right side of the zay. 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 Neck MRA 08/04/18 00:00 IMPRESSION: NO SIGNIFICANT STENOSIS. Basal artery and left vertebral artery widely patent. Nonvisualization of the right vertebral. Venous Doppler Study 08/05/18 00:00 IMPRESSION: NO EVIDENCE DVT OR SVT IN THE RIGHT LEG. Assessment & Plan - Diagnosis (1) Acute ischemic right posterior cerebral artery (DATABASE PROGRAMMER ANALYST) stroke Is this a current diagnosis for this admission?: Yes Plan: Continue Aggrenox and statin. I increase his Lantus yesterday to help keep his blood sugars down. I am restarting his metformin today. Start him back on low- dose lisinopril yesterday and his blood pressures have improved. We are c urrently awaiting acute rehab placement. I am told that he was accepted at [facility] and they can take him Thursday afternoon. Continue physical therapy and occupational therapy in the interim. (2) Diabetes mellitus type 2 in nonobese Is this a current diagnosis for this admission?: Yes Plan: Currently on a sliding scale. I increased his Lantus dosing. I am going to restart his metformin as well. (3) Hypertension Qualifiers: Hypertension type: unspecified Qualified Code(s): I10 - Essential (primary) hypertension Is this a current diagnosis for this admission?: Yes Plan: This improved after restarting lisinopril. Blood pressures now well controlled. - Time Time Spent with patient: 15-24 minutes
[2018-08-06] MEDS: ATORVASTATIN CALCIUM 10 MG TABLET PO SCH (21:22)
[2018-08-07] MEDS: HEPARIN SOD (PORCINE) 5,000 UNIT/ML 1 ML SYRINGE SUBCUT SCH ×3 (05:39→22:23)
[2018-08-07] MEDS: INSULIN REG, HUMAN 100 UNIT/ML 3 ML VIAL (PYX) SUBCUT PRN ×3 (08:19→17:51)
[2018-08-07] MEDS: METFORMIN HCL 500 MG TABLET PO SCH ×2 (08:19→16:19)
[2018-08-07] MEDS: LISINOPRIL 10 MG TABLET PO SCH (10:21)
[2018-08-07] MEDS: FAMOTIDINE 20 MG TABLET PO SCH ×2 (10:21→22:23)
[2018-08-07] MEDS: ASPIRIN/DIPYRIDAMOLE 25-200 MG 1 CAP.SR CPMP.12HR PO SCH ×2 (10:21→22:24)
[2018-08-07] MEDS: INSULIN GLARGINE,HUM.REC.ANLOG 300 UNIT/3 ML INSULN.PEN SUBCUT SCH ×2 (10:21→22:23)
[2018-08-07] MEDS: TRAMADOL HCL 50 MG TABLET PO PRN ×2 (10:26→16:17)
--- NOTE | 2018-08-07 16:17 | PDOC PROGRESS REPORT ---
Subjective Progress Note for:: 08/07/18 Subjective:: No adverse events overnight. He is holding his shoulder and arm up against gravity a bit better. Blood pressure control is been good. We restarted his metformin yesterday and his blood glucoses have improved. He has had no trouble eating or drinking. Reason For Visit: ACUTE RIGHT POSTERIOR CEREBRAL ARTERY INFARCTION Physical Exam Vital Signs: Temp Pulse Resp BP Pulse Ox 99.6 F 92 18 152/75 H 100 08/07/18 12:36 08/07/18 14:00 08/07/18 12:36 08/07/18 12:36 08/07/18 12:36 Intake & Output 08/06/18 08/07/18 08/08/18 06:59 06:59 06:59 Intake Total 1312 774 Output Total 1000 1750 Balance 312 -976 Weight 82.7 kg 82.6 kg General appearance: PRESENT: no acute distress, cooperative, disheveled Eye exam: PRESENT: EOMI, PERRLA Respiratory exam: PRESENT: clear to auscultation matilde, symmetrical, unlabored. ABSENT: accessory muscle use, rales, rhonchi, tachypnea, wheezes Cardiovascular exam: PRESENT: RRR, +S1, +S2 Vascular exam: PRESENT: normal capillary refill GI/Abdominal exam: PRESENT: normal bowel sounds, soft. ABSENT: distended, guarding, rebound, tenderness Extremities exam: ABSENT: clubbing, pedal edema. He does have some possible trace right lower extremity edema compared to the left Musculoskeletal exam: PRESENT: normal inspection. ABSENT: deformity Neurological exam: PRESENT: alert, awake, oriented to person, oriented to place, oriented to time, oriented to situation, motor sensory deficit - He has a little bit of a right-sided facial droop but his speech is normal. 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 He can lift his left leg up against gravity and hold it up several inches off the chair for several seconds Psychiatric exam: PRESENT: appropriate affect, normal mood Skin exam: PRESENT: dry, warm Results Laboratory Results: 08/06/18 04:26 08/06/18 04:26 08/03/18 08/03/18 15:30 15:30 Creatine Kinase 112 CK-MB (CK-2) 0.83 Troponin I < 0.012 Impressions: Chest X-Ray 08/03/18 15:03 IMPRESSION: No acute disease. Head CT 08/03/18 15:03 IMPRESSION: NORMAL BRAIN CT WITHOUT CONTRAST. CONSIDERATION FOR MRI FOLLOW- UP WAS DISCUSSED. EVIDENCE OF ACUTE STROKE: NO. Head MRI 08/03/18 16:16 IMPRESSION: There is an acute infarction involving the right side of the zay. EVIDENCE OF ACUTE STROKE: Yes RIGHT FOUNTAIN DISPENSER Brain MRI with MRA 08/04/18 00:00 IMPRESSION: NORMAL MRA OF THE [place]. Neck MRA 08/04/18 00:00 IMPRESSION: NO SIGNIFICANT STENOSIS. Basal artery and left vertebral artery widely patent. Nonvisualization of the right vertebral. Venous Doppler Study 08/05/18 00:00 IMPRESSION: NO EVIDENCE DVT OR SVT IN THE RIGHT LEG. Assessment & Plan - Diagnosis (1) Acute ischemic right posterior cerebral artery (FOUNTAIN DISPENSER) stroke Is this a current diagnosis for this admission?: Yes Plan: Continue Aggrenox and statin. Continue to work on improved glucose control. Continue to monitor his blood pressures, current control is good. We are currently awaiting acute rehab placement. I am told that he was accepted at [facility] and they can take him Thursday afternoon. Continue physical therapy and occupational therapy in the interim. (2) Diabetes mellitus type 2 in nonobese Is this a current diagnosis for this admission?: Yes Plan: Continue Lantus, sliding scale, and metformin. We may need to adjust his insulin a bit further (3) Hypertension Qualifiers: Hypertension type: unspecified Qualified Code(s): I10 - Essential (primary) hypertension Is this a current diagnosis for this admission?: Yes Plan: Currently well controlled with lisinopril - Time Time Spent with patient: 15-24 minutes
[2018-08-07] MEDS: NICOTINE 21 MG/24 HR PATCH.TD24 TD PRN (16:20)
[2018-08-07] MEDS: ACETAMINOPHEN 325 MG TABLET PO PRN (19:15)
[2018-08-07] MEDS: ATORVASTATIN CALCIUM 10 MG TABLET PO SCH (22:24)
[2018-08-08] MEDS: HEPARIN SOD (PORCINE) 5,000 UNIT/ML 1 ML SYRINGE SUBCUT SCH ×3 (05:14→21:47)
[2018-08-08] MEDS: INSULIN REG, HUMAN 100 UNIT/ML 3 ML VIAL (PYX) SUBCUT PRN ×2 (08:42→16:58)
[2018-08-08] MEDS: METFORMIN HCL 500 MG TABLET PO SCH ×2 (08:42→16:58)
[2018-08-08] MEDS: NICOTINE 21 MG/24 HR PATCH.TD24 TD PRN (09:21)
[2018-08-08] MEDS: INSULIN GLARGINE,HUM.REC.ANLOG 300 UNIT/3 ML INSULN.PEN SUBCUT SCH ×2 (09:21→21:47)
[2018-08-08] MEDS: FAMOTIDINE 20 MG TABLET PO SCH ×2 (09:22→21:48)
[2018-08-08] MEDS: LISINOPRIL 10 MG TABLET PO SCH (09:22)
[2018-08-08] MEDS: ASPIRIN/DIPYRIDAMOLE 25-200 MG 1 CAP.SR CPMP.12HR PO SCH ×2 (09:22→21:48)
--- NOTE | 2018-08-08 14:55 | PDOC PROGRESS REPORT ---
Subjective Progress Note for:: 08/08/18 Subjective:: No adverse events overnight. He says his right calf is really sore. He says that whenever he is at rest it does not bother him but whenever he tries to walk on it it is painful. The ultrasound was negative for DVT. He said he walked 90 feet with physical therapy today. Reason For Visit: ACUTE RIGHT POSTERIOR CEREBRAL ARTERY INFARCTION Physical Exam Vital Signs: Temp Pulse Resp BP Pulse Ox 98.5 F 95 18 139/70 H 99 08/08/18 11:35 08/08/18 11:35 08/08/18 11:35 08/08/18 11:35 08/08/18 11:35 Intake & Output 08/07/18 08/08/18 08/09/18 06:59 06:59 06:59 Intake Total 774 1286 578 Output Total 1750 1450 600 Balance -976 -164 -22 Weight 82.6 kg 82.8 kg General appearance: PRESENT: no acute distress, cooperative, disheveled Eye exam: PRESENT: EOMI, PERRLA Respiratory exam: PRESENT: clear to auscultation matilde, symmetrical, unlabored. ABSENT: accessory muscle use, rales, rhonchi, tachypnea, wheezes Cardiovascular exam: PRESENT: RRR, +S1, +S2 Vascular exam: PRESENT: normal capillary refill GI/Abdominal exam: PRESENT: normal bowel sounds, soft. ABSENT: distended, guarding, rebound, tenderness Extremities exam: ABSENT: clubbing, pedal edema. His right calf is slightly tender to palpation while he is at rest and is not swollen compared to the left Musculoskeletal exam: PRESENT: normal inspection. ABSENT: deformity Neurological exam: PRESENT: alert, awake, oriented to person, oriented to place, oriented to time, oriented to situation, motor sensory deficit - He has a little bit of a right-sided facial droop but his speech is normal. He has 3 out of 5 strength at the left shoulder and elbow, and 2 out of 5 perforator strength in the left hand. He can lift his left leg up against gravity and hold it up several inches off the chair for several seconds Psychiatric exam: PRESENT: appropriate affect, normal mood Skin exam: PRESENT: dry, warm Results Laboratory Results: 08/06/18 04:26 08/06/18 04:26 08/03/18 08/03/18 15:30 15:30 Creatine Kinase 112 CK-MB (CK-2) 0.83 Troponin I < 0.012 Impressions: Chest X-Ray 08/03/18 15:03 IMPRESSION: No acute disease. Head CT 08/03/18 15:03 IMPRESSION: NORMAL BRAIN CT WITHOUT CONTRAST. CONSIDERATION FOR MRI FOLLOW- UP WAS DISCUSSED. EVIDENCE OF ACUTE STROKE: NO. Head MRI 08/03/18 16:16 IMPRESSION: There is an acute infarction involving the right side of the zay. EVIDENCE OF ACUTE STROKE: Yes RIGHT DOCTOR OF NURSE ANESTHESIA Brain MRI with MRA 08/04/18 00:00 IMPRESSION: NORMAL MRA OF THE [place]. Neck MRA 08/04/18 00:00 IMPRESSION: NO SIGNIFICANT STENOSIS. Basal artery and left vertebral artery widely patent. Nonvisualization of the right vertebral. Venous Doppler Study 08/05/18 00:00 IMPRESSION: NO EVIDENCE DVT OR SVT IN THE RIGHT LEG. Assessment & Plan - Diagnosis (1) Acute ischemic right posterior cerebral artery (DOCTOR OF NURSE ANESTHESIA) stroke Is this a current diagnosis for this admission?: Yes Plan: Continue Aggrenox and statin. Continue to work on improved glucose control. Continue to monitor his blood pressures, current control is good. We are curr ently awaiting acute rehab placement. I am told that he was accepted at [facility] and they can take him Thursday afternoon. Continue physical therapy and occupational therapy in the interim. I think the pain he is feeling in his right calf is delayed onset muscle soreness as a result of having to bear more weight on his right leg to compensate for the left leg. (2) Diabetes mellitus type 2 in nonobese Is this a current diagnosis for this admission?: Yes Plan: Continue Lantus, sliding scale, and metformin. We may need to adjust his insulin a bit further (3) Hypertension Qualifiers: Hypertension type: unspecified Qualified Code(s): I10 - Essential (primary) hypertension Is this a current diagnosis for this admission?: Yes Plan: Currently well controlled with lisinopril - Time Time Spent with patient: 15-24 minutes
[2018-08-08] MEDS: TRAMADOL HCL 50 MG TABLET PO PRN ×2 (16:58→21:53)
[2018-08-08] MEDS: ATORVASTATIN CALCIUM 10 MG TABLET PO SCH (21:48)
[2018-08-09] MEDS: HEPARIN SOD (PORCINE) 5,000 UNIT/ML 1 ML SYRINGE SUBCUT SCH ×3 (05:56→21:26)
[2018-08-09] MEDS: LISINOPRIL 10 MG TABLET PO SCH (09:52)
[2018-08-09] MEDS: METFORMIN HCL 500 MG TABLET PO SCH ×2 (09:52→17:08)
[2018-08-09] MEDS: INSULIN GLARGINE,HUM.REC.ANLOG 300 UNIT/3 ML INSULN.PEN SUBCUT SCH ×2 (09:52→21:26)
[2018-08-09] MEDS: ASPIRIN/DIPYRIDAMOLE 25-200 MG 1 CAP.SR CPMP.12HR PO SCH ×2 (09:53→21:26)
[2018-08-09] MEDS: TRAMADOL HCL 50 MG TABLET PO PRN ×2 (09:53→15:39)
[2018-08-09] MEDS: FAMOTIDINE 20 MG TABLET PO SCH ×2 (09:53→21:26)
[2018-08-09] MEDS: NICOTINE 21 MG/24 HR PATCH.TD24 TD PRN (09:53)
--- NOTE | 2018-08-09 15:49 | PDOC PROGRESS REPORT ---
Subjective Progress Note for:: 08/09/18 Subjective:: No adverse events overnight. No new complaints. Vital signs been stable. Blood pressures been well controlled. Glucose control has been improved. Reason For Visit: ACUTE RIGHT POSTERIOR CEREBRAL ARTERY INFARCTION Physical Exam Vital Signs: Temp Pulse Resp BP Pulse Ox 98.5 F 95 16 136/86 H 100 08/09/18 12:10 08/09/18 14:00 08/09/18 12:10 08/09/18 12:10 08/09/18 12:10 Intake & Output 08/08/18 08/09/18 08/10/18 06:59 06:59 06:59 Intake Total 1286 814 475 Output Total 1450 1250 625 Balance -164 -436 -150 Weight 82.8 kg 81.5 kg General appearance: PRESENT: no acute distress, cooperative, disheveled Eye exam: PRESENT: EOMI, PERRLA Respiratory exam: PRESENT: clear to auscultation matilde, symmetrical, unlabored. ABSENT: accessory muscle use, rales, rhonchi, tachypnea, wheezes Cardiovascular exam: PRESENT: RRR, +S1, +S2 Vascular exam: PRESENT: normal capillary refill GI/Abdominal exam: PRESENT: normal bowel sounds, soft. ABSENT: distended, guarding, rebound, tenderness Extremities exam: ABSENT: clubbing, pedal edema. His right calf is slightly t asher to palpation while he is at rest and is not swollen compared to the left Musculoskeletal exam: PRESENT: normal inspection. ABSENT: deformity Neurological exam: PRESENT: alert, awake, oriented to person, oriented to place, oriented to time, oriented to situation, motor sensory deficit - He has a little bit of a right-sided facial droop but his speech is normal. He has 3 out of 5 strength at the left shoulder and elbow, and 2 out of 5 crm consultant strength in the left hand. He can lift his left leg up against gravity and hold it up several inches off the chair for several seconds Psychiatric exam: PRESENT: appropriate affect, normal mood Skin exam: PRESENT: dry, warm Results Laboratory Results: 08/06/18 04:26 08/06/18 04:26 08/03/18 08/03/18 15:30 15:30 Creatine Kinase 112 CK-MB (CK-2) 0.83 Troponin I < 0.012 Impressions: Chest X-Ray 08/03/18 15:03 IMPRESSION: No acute disease. Head CT 08/03/18 15:03 IMPRESSION: NORMAL BRAIN CT WITHOUT CONTRAST. CONSIDERATION FOR MRI FOLLOW- UP WAS DISCUSSED. EVIDENCE OF ACUTE STROKE: NO. Head MRI 08/03/18 16:16 IMPRESSION: There is an acute infarction involving the right side of the zay. EVIDENCE OF ACUTE STROKE: Yes RIGHT MANAGER HEALTH Brain MRI with MRA 08/04/18 00:00 IMPRESSION: NORMAL MRA OF THE [place] OF [place]. Neck MRA 08/04/18 00:00 IMPRESSION: NO SIGNIFICANT STENOSIS. Basal artery and left vertebral artery widely patent. Nonvisualization of the right vertebral. Venous Doppler Study 08/05/18 00:00 IMPRESSION: NO EVIDENCE DVT OR SVT IN THE RIGHT LEG. Assessment & Plan - Diagnosis (1) Acute ischemic right posterior cerebral artery (MANAGER HEALTH) stroke Is this a current diagnosis for this admission?: Yes Plan: Continue Aggrenox and statin. Continue to work on improved glucose control. Continue to monitor his blood pressures, current control is good. We are currently awaiting acute rehab placement. He was supposed to go to [facility] today but we have not had any contact with a facility in [place] and so discharge planning is looking into it. If they are not going to accept him and he still has a bit [place] tomorrow we will discharge him then. (2) Diabetes mellitus type 2 in nonobese Is this a current diagnosis for this admission?: Yes Plan: Continue Lantus, sliding scale, and metformin. (3) Hypertension Qualifiers: Hypertension type: unspecified Qualified Code(s): I10 - Essential (primary) hypertension Is this a current diagnosis for this admission?: Yes Plan: Currently well controlled with lisinopril - Time Time Spent with patient: 15-24 minutes
[2018-08-09] MEDS: INSULIN REG, HUMAN 100 UNIT/ML 3 ML VIAL (PYX) SUBCUT PRN ×2 (17:08→21:27)
[2018-08-09] MEDS: ATORVASTATIN CALCIUM 10 MG TABLET PO SCH (21:26)
[2018-08-10] MEDS: HEPARIN SOD (PORCINE) 5,000 UNIT/ML 1 ML SYRINGE SUBCUT SCH ×2 (05:56→13:14)
[2018-08-10] MEDS: METFORMIN HCL 500 MG TABLET PO SCH ×2 (09:18→17:42)
[2018-08-10] MEDS: ASPIRIN/DIPYRIDAMOLE 25-200 MG 1 CAP.SR CPMP.12HR PO SCH (09:18)
[2018-08-10] MEDS: INSULIN GLARGINE,HUM.REC.ANLOG 300 UNIT/3 ML INSULN.PEN SUBCUT SCH (09:18)
[2018-08-10] MEDS: LISINOPRIL 10 MG TABLET PO SCH (09:18)
[2018-08-10] MEDS: FAMOTIDINE 20 MG TABLET PO SCH (09:18)
[2018-08-10] MEDS: NICOTINE 21 MG/24 HR PATCH.TD24 TD PRN (09:22)
[2018-08-10] MEDS: TRAMADOL HCL 50 MG TABLET PO PRN (11:46)
[2018-08-10] MEDS: INSULIN REG, HUMAN 100 UNIT/ML 3 ML VIAL (PYX) SUBCUT PRN (11:46)
--- NOTE | 2018-08-10 11:51 | PDOC TRANSFER SUMMARY ---
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 MRI of the brain showed a right-sided pontine stroke. MRA was remarkable for nonopacification of the right vertebral artery. He has been on antiplatelet and statin therapy. His blood pressures been well controlled on a single agent. His blood glucose was initially elevated but we been able to keep that under good control with an insulin regimen. He is made progress of physical therapy and has better use of his left leg now but still does not have any use of his left hand, and he still has substantial distal muscle weakness of the left upper extremity. He has been ambulating with a one- handed walker. He was evaluated and felt to be a good candidate for acute rehab. (2) Diabetes mellitus type 2 in nonobese Is this a current diagnosis for this admission?: Yes Diagnosis Summary: After some adjustment of his insulin regimen, we have been able to get good control with her current regimen. He is currently on Lantus and a sliding scale. (3) Hypertension Is this a current diagnosis for this admission?: Yes Diagnosis Summary: Very hypertensive initially, and after a 24-hour period his blood pressure began to trend down a bit on his own but was still elevated so we added small dose of lisinopril and his blood pressure is now well controlled. - Transfer Medications Home Medications: Lisinopril/Hydrochlorothiazide [Lisinopril-Hctz 20-25 mg Tab] 1 tab PO QAM 08/04/18 Metformin HCl [Glucophage] 1,000 mg PO BIDACBS 08/04/18 Paroxetine HCl [Paxil 20 mg Tablet] 20 mg PO QAM 08/04/18 Quetiapine Fumarate [Seroquel 100 mg Tablet] 100 mg PO QHS 08/04/18 Transfer Medications: Current Medications Acetaminophen (Tylenol 650 Mg Supp) 650 mg FL Q4HP PRN PRN Reason: Temp greater than 101F Stop: 09/02/18 23:10 Acetaminophen (Tylenol 325 Mg Tablet) 650 mg PO Q4HP PRN PRN Reason: Temp greater than 101F Stop: 09/02/18 23:10 Last Admin: 08/07/18 19:15 Dose: 650 mg Documented by: Atorvastatin Calcium (Lipitor 10 Mg Tablet) 10 mg PO QHS [facility] Stop: 09/03/18 21:59 Last Admin: 08/09/18 21:26 Dose: 10 mg Documented by: Dextrose (Dextrose Inj 50% Syringe (25 Gm/50 Ml)) 25 gm IV PRN PRN; Protocol PRN Reason: PER PROTOCOL Stop: 09/02/18 23:17 Dextrose (Dextrose Inj 50% Syringe (25 Gm/50 Ml)) 12.5 gm IV PRN PRN; Protocol PRN Reason: FOR BG 50-69 IN ALERT PATIENT Stop: 09/02/18 23:17 Dipyridamole/Aspirin (Aggrenox 25 Mg/200 Mg Capsule Sa) 1 cap.sr PO Q12 JOSÉ ANTONIO Stop: 09/03/18 09:59 Last Admin: 08/10/18 09:18 Dose: 1 cap.sr Documented by: Docusate Sodium (Colace 100 Mg Capsule) 100 mg PO BIDP PRN PRN Reason: FOR CONSTIPATION Stop: 09/02/18 23:10 Famotidine (Pepcid 20 Mg Tablet) 20 mg PO Q12 JOSÉ ANTONIO Stop: 09/03/18 09:59 Last Admin: 08/10/18 09:18 Dose: 20 mg Documented by: Glucagon (Glucagen Inj 1 Mg Vial) 1 mg IM PRN PRN; Protocol PRN Reason: Evaluate for BG < 70 Stop: 09/02/18 23:17 Glucose (Glutose 40% Gel 15 Gm Tube) 15 gm PO PRN PRN; Protocol PRN Reason: FOR BG 50-69 IN ALERT PATIENT Stop: 09/02/18 23:17 Glucose (Glutose 40% Gel 15 Gm Tube) 30 gm PO PRN PRN; Protocol PRN Reason: FOR BG < 50 IN ALERT PATIENT Stop: 09/02/18 23:17 Heparin Sodium (Porcine) (Heparin Inj 5,000 Units/Ml 1 Ml Syringe) 5,000 unit SUBCUT Q8 [facility] Stop: 09/03/18 05:59 Last Admin: 08/10/18 05:56 Dose: Not Given Documented by: Influenza Virus Vaccine Quadrival (Fluarix Adlt Quad Vac 0.5 Ml Syr) 0.5 ml IM .DISCHARGE PRN PRN Reason: THIS MED IS NOT "PRN" Stop: 09/02/18 22:31 Insulin Glargine (Lantus Insulin Inj 300 Unit/3 Ml Pen) 20 unit SUBCUT Q12 [facility] Stop: 09/04/18 21:59 Last Admin: 08/10/18 09:18 Dose: 20 unit Documented by: Insulin Human Regular (Humulin R (Pyxis) Insulin 100 Unit/Ml 3ml) 0 - 12 unit SUBCUT ACHSP PRN; Protocol PRN Reason: PER PROTOCOL Stop: 09/02/18 23:17 Last Admin: 08/09/18 21:27 Dose: 2 unit Documented by: Labetalol HCl (Normodyne Inj 20 Mg/4 Ml Syringe) 20 mg IV Q10MP PRN PRN Reason: Give For Sbp > 160 / Dbp > 100 Stop: 09/02/18 23:10 Lisinopril (Prinivil 10 Mg Tablet) 10 mg PO DAILY [facility] Stop: 09/05/18 09:59 Last Admin: 08/10/18 09:18 Dose: 10 mg Documented by: Magnesium Hydroxide (Milk Of Magnesia 30 Ml Udcup) 30 ml PO HSP PRN PRN Reason: FOR CONSTIPATION Stop: 09/02/18 23:10 Metformin HCl (Glucophage 500 Mg Tablet) 1,000 mg PO BIDACBS [facility] Stop: 09/05/18 16:59 Last Admin: 08/10/18 09:18 Dose: 1,000 mg Documented by: Nicotine (Nicoderm 21 Mg/24 Hr Transderm Patch) 1 each TD DAILYP PRN PRN Reason: WITHDRAWAL SYMPTOMS Stop: 09/02/18 23:33 Last Admin: 08/10/18 09:22 Dose: 1 each Documented by: Ondansetron HCl (Zofran Inj/Pf 4 Mg/2 Ml Sdv) 4 mg IV Q4HP PRN PRN Reason: FOR NAUSEA/VOMITING Stop: 09/02/18 23:10 Ondansetron HCl (Zofran Odt 4 Mg Tablet) 4 mg PO Q4HP PRN PRN Reason: FOR NAUSEA/VOMITING Stop: 09/02/18 23:10 Sodium Chloride (Saline Flush 2.5 Ml Monoject Prefil Syrin) 2.5 ml IV Q8 [facility] Stop: 09/03/18 05:59 Last Admin: 08/10/18 05:57 Dose: 2.5 ml Documented by: Tramadol HCl (Ultram 50 Mg Tablet) 50 mg PO Q4HP PRN PRN Reason: Pain Scale of 2-3 Stop: 08/10/18 23:10 Last Admin: 08/09/18 15:39 Dose: 50 mg Documented by: - Allergies Allergies/Adverse Reactions: No Known Allergies Allergy (Unverified 08/03/18 15:31) - Diet/Activity Discharge Diet: Cardiac, Diabetic Discharge Activity: Supervised Activity Hospital Course Hospital Course: He was admitted and after a swallow evaluation was put on antiplatelet and statin therapy. Permissive hypertension was done for the first 24 hours. His blood sugars were elevated and we put him on an insulin regimen he was on at h ome, but this was not enough to control his blood sugars and so he had to increase his Lantus we have added a sliding scale, and we got good blood sugar control with that. After the first 24 hours, his blood pressure had improved from admission but was still elevated above goal, and so a small dose of lisinopril was added and we got an excellent blood pressure control with that. He is been working with physical therapy and has made good progress. He was initially dragging his left leg quite a bit but has been able to get better function and his gait has improved. He is been having to use a one-handed walker with his right hand because he still cannot use his left hand. 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 He was evaluated by physical therapy and thought to be a good candidate for acute rehab. A bed was obtained for him at [facility] acute rehab and he is being transferred today in good condition. He has been complaining of some muscle soreness in his right calf from where he is been compensating his gait and having to bear more weight on his right leg whenever he walks. Ultrasound of that leg was negative for DVT. Physical Exam Vital Signs: Temp Pulse Resp BP Pulse Ox 98.0 F 79 12 118/62 100 08/10/18 07:10 08/10/18 07:10 08/10/18 07:10 08/10/18 07:10 08/10/18 07:10 Intake & Output 08/09/18 08/10/18 08/11/18 06:59 06:59 06:59 Intake Total 814 1472 Output Total 1250 5165 Balance -436 -953 Weight 81.5 kg 80.7 kg General appearance: PRESENT: no acute distress, cooperative, disheveled Eye exam: PRESENT: EOMI, PERRLA Respiratory exam: PRESENT: clear to auscultation matilde, symmetrical, unlabored. ABSENT: accessory muscle use, rales, rhonchi, tachypnea, wheezes Cardiovascular exam: PRESENT: RRR, +S1, +S2 Vascular exam: PRESENT: normal capillary refill GI/Abdominal exam: PRESENT: normal bowel sounds, soft. ABSENT: distended, guar ding, rebound, tenderness Extremities exam: ABSENT: clubbing, pedal edema. His right calf is slightly tender to palpation while he is at rest and is not swollen compared to the left Musculoskeletal exam: PRESENT: normal inspection. ABSENT: deformity Neurological exam: PRESENT: alert, awake, oriented to person, oriented to place, oriented to time, oriented to situation, motor sensory deficit - He has a little bit of a right-sided facial droop but his speech is normal. He has 3 out of 5 strength at the left shoulder and elbow, and 2 out of 5 senior oracle applications developer strength in the left hand. He can lift his left leg up against gravity and hold it up several inches off the chair for several seconds Psychiatric exam: PRESENT: appropriate affect, normal mood Skin exam: PRESENT: dry, warm Results Laboratory Results: 08/06/18 04:26 08/06/18 04:26 08/03/18 08/03/18 15:30 15:30 Creatine Kinase 112 CK-MB (CK-2) 0.83 Troponin I < 0.012 Impressions: Chest X-Ray 08/03/18 15:03 IMPRESSION: No acute disease. Head CT 08/03/18 15:03 IMPRESSION: NORMAL BRAIN CT WITHOUT CONTRAST. CONSIDERATION FOR MRI FOLLOW- UP WAS DISCUSSED. EVIDENCE OF ACUTE STROKE: NO. Head MRI 08/03/18 16:16 IMPRESSION: There is an acute infarction involving the right side of the zay. EVIDENCE OF ACUTE STROKE: Yes RIGHT FURRIER DESIGNER Brain MRI with MRA 08/04/18 00:00 IMPRESSION: NORMAL MRA OF THE TELIDA OF RICHARD. Neck MRA 08/04/18 00:00 IMPRESSION: NO SIGNIFICANT STENOSIS. Basal artery and left vertebral artery widely patent. Nonvisualization of the right vertebral. Venous Doppler Study 08/05/18 00:00 IMPRESSION: NO EVIDENCE DVT OR SVT IN THE RIGHT LEG. Plan Discharge Plan: Transfer to [facility] acute rehab Time Spent: Greater than 30 Minutes
[2018-08-10 15:54] VITALS: BP 152/85
== END 2018-08-10 20:40 | disposition short-term general hospital (02) | DRG 65 ==
LOC: ER 14:42 → EH 18:24 → 3W 21:07
PROVIDERS: ADMIT Hospitalist; ATTEND Hospitalist
DX: I63.89 Other cerebral infarction (principal); G81.94 Hemiplegia, unspecified affecting left nondominant side; I10 Essential (primary) hypertension; E11.9 Type 2 diabetes mellitus without complications; F32.9 Major depressive disorder, single episode, unspecified; Z79.84 Long term (current) use of oral hypoglycemic drugs; Z79.899 Other long term (current) drug therapy; F17.210 Nicotine dependence, cigarettes, uncomplicated
CPT/HCPCS: 36415; 70450; 70544; 70547; 70551; 71045; 80048; 80053; 80061; 80307; 81001; 82550; 82553; 82803; 82962; 83036; 84484; 85025; 85027; 85610; 85730; 93005; 93010; 93971; 96361; 96374; 99291; 99406; J1644; J1815; J3490; J7030

== ENCOUNTER 2020-07-22 15:18 | Emergency (ER) | payer MEDICAID ==
--- NOTE | 2020-07-22 16:48 | RADIOLOGY REPORT (SQ) ---
EXAM DESCRIPTION: L SPINE WHOLE IMAGES COMPLETED DATE/TIME: 07/22/2020 4:33 pm REASON FOR STUDY: fall, back pain COMPARISON: None. NUMBER OF VIEWS: Five views including obliques. TECHNIQUE: AP, lateral, oblique, and sacral radiographic images acquired of the lumbar spine. LIMITATIONS: None. FINDINGS: MINERALIZATION: Osteopenia. SEGMENTATION: Normal. No transitional anatomy. ALIGNMENT: Dextroconvex curvature of the thoracolumbar spine. VERTEBRAE: Anterior wedge deformity of the T11 vertebral body with 30% height loss. DISCS: Preserved height. No significant osteophytes or end plate irregularity. POSTERIOR ELEMENTS: Postsurgical changes L4-5 laminectomy. Right L4 pars defect. HARDWARE: None in the spine. PARASPINAL SOFT TISSUES: Normal. PELVIS: Intact as visualized. No fractures or worrisome bone lesions. SI joints intact. OTHER: No other significant finding. IMPRESSION: Osteopenia. Age indeterminate T11 vertebral body compression fracture with 30% height l oss. Postsurgical changes L4-5 laminectomy. Right L4 pars defect. TECHNICAL DOCUMENTATION: JOB ID: [id number] [employer]- All Rights Reserved Reading location - IP/workstation name: [email or web address]
[2020-07-22] MEDS ORDERED: METHOCARBAMOL INJ/PF 1000 MG/10 ML SDV IV ONE (18:05)
[2020-07-22] MEDS ORDERED: KETOROLAC TROMETHAMINE INJ/PF 30 MG/1 ML SDV IV ONE (18:05)
[2020-07-22] MEDS ORDERED: MORPHINE SULFATE 10 MG/ML INJ IV ONE (18:06)
--- NOTE | 2020-07-22 18:36 | ER Document Report ---
Entered by LISA HINDS SCRIBE 07/22/20 1803 Acting as scribe for:MIO FERRARI MD ED Fall - General Chief Complaint: Fall Stated Complaint: FALL Primary Care Provider: KENDRICK BRIGHT PA-C [Primary Care Provider] - Follow up as needed Information source: Patient Notes: This 60 year old male patient presents to the emergency department today with complaints of low back pain resulting from a fall this morning. Patient is status post CVA with residual left-sided weakness and he mentions that his girlfriend who usually helps him at home is admitted at a rehab facility for a MRSA infection. Patient states his pain increased if he sits down or stands up, his only position of comfort is lying supine. He reports the pain is in the lower lumbar region in the area of his previous surgery which was L4-5. He states that the following is not that uncommon because his left knee will give out easily. He normally wears a brace but has been unable to get it on because it requires 2 hands and he has permanent limited use of the left hand secondary to old electrical injury and CVA 2 years ago. He does walk with a cane, but recognizes that he may need a walker for the near future. TRAVEL OUTSIDE OF THE [place] IN LAST 30 DAYS: No - Related data Allergies/Adverse Reactions: No Known Allergies Allergy (Verified 07/22/20 15:37) Past Medical History - General Information source: Patient - Social History Smoking Status: Current Every Day Smoker Cigarette use (# per day): Yes - 1 pack/week Frequency of alcohol use: None Drug Abuse: None Occupation: disabled Lives with: Family Family History: Reviewed & Not Pertinent - Past Medical History Cardiac Medical History: Reports: Hx Hypertension Endocrine Medical History: Reports: Hx Diabetes Mellitus Type 2 Psychiatric Medical History: Reports: Hx Depression Past Surgical History: Reports: Hx Tonsillectomy, Other - Bilateral cataract extractions with lens replacement, multiple skin grafts Review of Systems - Review of Systems Constitutional: No symptoms reported EENT: No symptoms reported Cardiovascular: No symptoms reported Respiratory: No symptoms reported Gastrointestinal: No symptoms reported Genitourinary: No symptoms reported Male Genitourinary: No symptoms reported Musculoskeletal: See HPI, Back pain Skin: No symptoms reported Hematologic/Lymphatic: No symptoms reported Neurological/Psychological: No symptoms reported -: Yes All other systems reviewed and negative Physical Exam - Vital signs Vitals: Temp Pulse Resp BP Pulse Ox 98.6 F 100 18 155/96 H 97 07/22/20 15:37 07/22/20 15:37 07/22/20 15:37 07/22/20 15:37 07/22/20 15:37 - Notes Notes: Physical Exam: General: Alert, appears at baseline. HEENT: Normocephalic. Atraumatic. PERRL. Extraocular movements intact. Oropharynx clear. Neck: Supple. Non-tender. Respiratory: No respiratory distress. Clear and equal breath sounds bilaterally. Cardiovascular: Regular rate and rhythm. Abdominal: Normal Inspection. Non-tender. No distension. Normal Bowel Sounds. Back: Tenderness with palpation over L4-L5. No gross abnormalities. Extremities: Moves all four extremities. Upper extremities: LUE contractures. LUE weakness at baseline. Lower extremities: LLE weakness at baseline. Neurological: Normal cognition. AAOx4. Normal speech. Psychological: Normal affect. Normal Mood. Skin: Warm. Dry. Normal color. Course - Re-evaluation Re-evalutation: 07/22/20 18:37 Patient told nurse he prefers pills or shots because his veins are difficult to obtain due to his prior skin grafts. 07/22/20 20:43 The knee immobilizer was placed on the left lower extremity by the PCT. It fits well and provides stability for the knee. - Vital Signs Vital signs: Temp Pulse Resp BP Pulse Ox 98.6 F 103 H 17 176/108 H 100 07/22/20 19:47 07/22/20 19:47 07/22/20 19:47 07/22/20 20:34 07/22/20 19:47 - Laboratory Results Critical Laboratory Results Reviewed: No Critical Results - Radiology Results Critical Radiology Results Reviewed: No Critical Results Discharge - Discharge Clinical Impression: Chronic instability of left knee, Elevated blood pressure reading Low back pain Qualifiers: Chronicity: acute Back pain laterality: midline Sciatica presence: without sciatica Qualified Code(s): M54.5 - Low back pain Wedge compression fracture of T11 vertebra Qualifiers: Encounter type: initial encounter Fracture type: closed Qualified Code(s): S22.080A - Wedge compression fracture of T11-T12 vertebra, initial encounter for closed fracture Condition: Stable Disposition: HOME, SELF-CARE Additional Instructions: Low Back Pain: Three out of every four people will have an episode of disabling back pain during their lifetime. Most commonly the pain is due to straining of the muscles and ligaments in the low back. Usual treatment includes: (1) Rest on a firm surface. Avoid lying on your stomach. (2) Ice pack the painful area. After a few days, gentle heat may be used intermittently to relax the area, or ice packs can be continued. (3) Medication may be needed -- muscle relaxers and antiinflammatory medicines are commonly used. (4) As the back improves, exercises are prescribed to strengthen the back and abdominal muscles. Your doctor will advise you on the proper care for your back at each stage in your recovery. You may be better in a few days -- or healing may take several weeks. If new symptoms of a "herniated disc" (radiation of pain, numbness, or tingling down the back of the leg or weakness in the leg) occur, you should be re-examined. Further testing may be necessary. Compression Fracture of the Spine: A vertebra within your spine has been crushed. This is called a "compression fracture." Typically, this type of injury is caused by a sudden bending or compressing force such as an auto accident or a fall. Although painful, the fracture is not serious. You can expect to recover fully within a few weeks. The treatment of this fracture is essentially the same as for a severe back strain. Muscle relaxers or antiinflammatory medication may be prescribed. You should rest in bed for a few days until the pain eases, then begin light activity. A re-check will determine when you are ready to resume work or sports. Ice pack the painful area at first. After you are active again, you may want to apply gentle heat intermittently to relax sore muscles. You can continue with ice packs if you find them helpful in reducing muscle pain. Call the doctor or return at once if you develop radiating pains, muscle weakness, problems with the bladder or bowels, or numbness. Your physical exam suggest that the T11 compression fracture of your spine is an old injury. You have an acute lumbar back strain. Your blood pressure was elevated this evening, be sure you do not miss any of your blood pressure medication doses. Take medication as prescribed for your low back pain for the next few days. Take ibuprofen 600 mg every 8 hours for the next few days. Leave the knee immobilizer on until you have help placing your small knee brace on. Limit your activity until your back is feeling better. Follow-up with your primary care provider if not improving. RETURN TO THE EMERGENCY ROOM IF ANY NEW OR WORSENING SYMPTOMS. Prescriptions: Cyclobenzaprine HCl 5 mg PO Q8 PRN #15 tablet PRN Reason: Hydrocodone/Acetaminophen [Boyd 5-325 mg Tablet] 1 tab PO ASDIR PRN #10 tablet PRN Reason: For Pain Referrals: KENDRICK BRIGHT PA-C [Primary Care Provider] - Follow up as needed I personally performed the services described in the documentation, reviewed and edited the documentation which was dictated to the scribe in my presence, and it accurately records my words and actions.
[2020-07-22] MEDS ORDERED: KETOROLAC TROMETHAMINE 60 MG/2 ML SDV IM ONE (18:38)
[2020-07-22] MEDS ORDERED: CYCLOBENZAPRINE HCL 10 MG TABLET PO ONE (18:38)
[2020-07-22] MEDS ORDERED: OXYCODONE-ACETAMINOPHEN 5-325 MG TABLET PO ONE (18:38)
[2020-07-22 20:34] VITALS: BP 176/108
[2020-07-22] MEDS ORDERED: HYDROCODONE/ACETAMINOPHEN 5-325 MG (6 TAB/ER DISP) PO PRN (20:40)
== END 2020-07-22 20:50 | disposition home or self-care (01) ==
LOC: ER 15:18
DX: S22.080A Wedge compression fracture of T11-T12 vertebra, initial encounter for closed fracture (principal); M54.5 Low back pain; W19.XXXA Unspecified fall, initial encounter; Y92.007 Garden or yard of unspecified non-institutional (private) residence as the place of occurrence of the external cause; M23.52 Chronic instability of knee, left knee; M85.80 Other specified disorders of bone density and structure, unspecified site; I69.354 Hemiplegia and hemiparesis following cerebral infarction affecting left non-dominant side; F17.210 Nicotine dependence, cigarettes, uncomplicated; I10 Essential (primary) hypertension; E11.9 Type 2 diabetes mellitus without complications
CPT/HCPCS: 99284; 96372; 72110; J3490; J1885

== ENCOUNTER 2020-07-29 12:06 | Inpatient (IN) | payer MEDICAID ==
--- NOTE | 2020-07-29 13:13 | RADIOLOGY REPORT (SQ) ---
EXAM DESCRIPTION: CT HEAD WITHOUT IMAGES COMPLETED DATE/TIME: 07/29/2020 9:44 am REASON FOR STUDY: possible stroke COMPARISON: None. TECHNIQUE: Axial images acquired through the brain without intravenous contrast. Images reviewed wi th bone, brain and subdural windows. Additional sagittal and coronal reconstructions were generated. Images stored on PACS. All CT scanners at this facility use dose modulation, iterative reconstruction, and/or weight based d osing when appropriate to reduce radiation dose to as low as reasonably achievable (ALARA). [facility]: Dose Right [facility]: CareDose [facility]: Dose Right [facility]: Teradose 4D [facility]: [employer] RADIATION DOSE: CT Rad equipment meets quality standard of care and radiation dose reduction techniq ues were employed. CTDIvol: 49.0 mGy. DLP: 1034 mGy-cm. mGy. LIMITATIONS: None. FINDINGS: VENTRICLES: Normal size and contour. CEREBRUM: No masses. No hemorrhage. No midline shift. Question of some asymmetric hypoattenuation in the anteromedial left frontal lobe (series 2, image 22). This could be artifactual, though cannot definitively exclude component of acute ischemia. Few scattered areas of low density in the white m atter most likely chronic small vessel ischemic changes. CEREBELLUM: No masses. No hemorrhage. No alteration of density. No evidence for acute infarction. EXTRAAXIAL SPACES: No fluid collections. No masses. ORBITS AND GLOBE: No intra- or extraconal masses. Normal contour of globe without masses. CALVARIUM: No fracture. PARANASAL SINUSES: No fluid or mucosal thickening. SOFT TISSUES: No mass or hematoma. OTHER: No other significant finding. IMPRESSION: 1. Faint hypoattenuation in the anteromedial left frontal lobe could be artifactual, th ough acute ischemia is not excluded. Further evaluation with MRI is recommended. 2. No acute intracranial hemorrhage. EVIDENCE OF ACUTE STROKE: YES. LEFT RAMYA. COMMENT: This report was called to PAULINO SKINNER MD at10:05 on 07/29/2020. Quality ID # [id number]: Final reports with documentation of one or more dose reduction techniques (e.g., Au tomated exposure control, adjustment of the mA and/or kV according to patient size, use of iterative reconstruction technique) TECHNICAL DOCUMENTATION: JOB ID: [id number] 2010 5 [employer] and some sugar- All Rights Reserved Reading location - IP/workstation name: [email or web address]
--- NOTE | 2020-07-29 13:22 | RADIOLOGY REPORT (SQ) ---
EXAM DESCRIPTION: CT CERVICAL SPINE WITHOUT IMAGES COMPLETED DATE/TIME: 07/29/2020 9:44 am REASON FOR STUDY: possible stroke COMPARISON: None. TECHNIQUE: Axial images acquired through the cervical spine without intravenous contrast. Images re viewed with lung, soft tissue and bone windows. Reconstructed coronal and sagittal MPR images review ed. Images stored on PACS. All CT scanners at this facility use dose modulation, iterative reconstruction, and/or weight based d osing when appropriate to reduce radiation dose to as low as reasonably achievable (ALARA). [facility]: Dose Right [facility]: CareDose [facility]: Dose Right [facility]: Teradose 4D [facility]: Smart [employer] RADIATION DOSE: CT Rad equipment meets quality standard of care and radiation dose reduction techniq ues were employed. CTDIvol: 19.8 mGy. DLP: 468 mGy-cm. mGy. LIMITATIONS: None. FINDINGS: ALIGNMENT: Some exaggeration of the cervical lordosis. No significant spondylolisthesis. MINERALIZATION: Normal. VERTEBRAL BODIES: No fractures or dislocation. DISCS: Some mild loss of intervertebral disc height posteriorly at multiple levels. Multilevel uncov ertebral joint spurring, slightly more pronounced on the right. FACETS, LATERAL MASSES, POSTERIOR ELEMENTS: No fractures. No dislocation. No acute findings. Multi level facet arthropathy. HARDWARE: None in the spine. VISUALIZED RIBS: No fractures. LUNG APICES AND SOFT TISSUES: No significant or acute findings. OTHER: No other significant finding. IMPRESSION: 1. No CT evidence of acute fracture subluxation of the cervical spine. 2. Multilevel degenerative changes. TECHNICAL DOCUMENTATION: JOB ID: [id number] Quality ID # [id number]: Final reports with documentation of one or more dose reduction techniques (e.g., Au tomated exposure control, adjustment of the mA and/or kV according to patient size, use of iterative reconstruction technique) 2010 [employer]- All Rights Reserved Reading location - IP/workstation name: [email or web address]
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
[2020-07-29] MEDS ORDERED: NORMAL SALINE 1000 ML 1,000 ML IV ONE (13:25)
[2020-07-29] MEDS ORDERED: DEXTROSE 5%-LACTATED RINGERS 1,000 ML IV ONE (13:26)
--- NOTE | 2020-07-29 13:33 | RADIOLOGY REPORT (SQ) ---
EXAM DESCRIPTION: CT CHEST WITHOUT IMAGES COMPLETED DATE/TIME: 07/29/2020 9:44 am REASON FOR STUDY: possible stroke COMPARISON: Single-view chest 08/03/2018. TECHNIQUE: CT scan performed of the chest without intravenous contrast. Images reviewed with lung, soft tissue and bone windows. Reconstructed coronal and sagittal MPR images reviewed. All images st ored on PACS. All CT scanners at this facility use dose modulation, iterative reconstruction, and/or weight based d osing when appropriate to reduce radiation dose to as low as reasonably achievable (ALARA). [facility]: Dose Right [facility]: CareDose [facility]: Dose Right [facility]: Teradose 4D [facility]: Smart [employer] RADIATION DOSE: CT Rad equipment meets quality standard of care and radiation dose reduction techniq ues were employed. CTDIvol: 6.2 - 7.4 mGy. DLP: 640 mGy-cm. mGy. LIMITATIONS: Mild motion artifact. Artifact from patient's upper extremities extending along sides. FINDINGS: LUNGS AND PLEURA: Mild motion artifact. No parenchymal consolidation. No suspicious pulm onary nodule identified. No pleural effusion or thickening. No pneumothorax. HILAR AND MEDIASTINAL STRUCTURES: No identified masses or abnormal nodes. No obvious aneurysm. HEART AND VASCULAR STRUCTURES: No aneurysm. No pericardial effusion. Trace coronary artery calcific ations. UPPER ABDOMEN: See separate report of the CT of the abdomen. THYROID AND OTHER SOFT TISSUES: No masses. No adenopathy. BONES: Compression fracture at T11 with approximately 40% vertebral body height loss. Linear lucency extending anteriorly to posteriorly. This could be acute. No suspicious bone lesions. Other osseo us structures including the sternum and multiple ribs are not optimally assessed due to motion artifa ct. HARDWARE: None in the chest. OTHER: No other significant findings. IMPRESSION: 1. Compression fracture at T11 with approximately 40% vertebral body height loss. This could be at least partially acute. Correlate with physical examination for focal pain/ tenderness i n this region. 2. No other acute intrathoracic abnormality on noncontrast CT of the chest. TECHNICAL DOCUMENTATION: JOB ID: [id number] Quality ID # [id number]: Final reports with documentation of one or more dose reduction techniques (e.g., Au tomated exposure control, adjustment of the mA and/or kV according to patient size, use of iterative reconstruction technique) 2010 [employer]- All Rights Reserved Reading location - IP/workstation name: [email or web address]
--- NOTE | 2020-07-29 13:39 | RADIOLOGY REPORT (SQ) ---
EXAM DESCRIPTION: CT ABD/PELVIS NO ORAL OR IV IMAGES COMPLETED DATE/TIME: 07/29/2020 9:44 am REASON FOR STUDY: possible stroke COMPARISON: None. TECHNIQUE: CT scan of the abdomen and pelvis performed without intravenous or oral contrast. Images reviewed with lung, soft tissue, and bone windows. Reconstructed coronal and sagittal MPR images revi ewed. All images stored on PACS. All CT scanners at this facility use dose modulation, iterative reconstruction, and/or weight based d osing when appropriate to reduce radiation dose to as low as reasonably achievable (ALARA). [facility]: Dose Right [facility]: CareDose [facility]: Dose Right [facility]: Teradose 4D [facility]: [employer] RADIATION DOSE: DLP 640mGy. LIMITATIONS: Suboptimal evaluation of the vasculature and solid organs due to lack of IV contrast. There is some streak artifact from patient's upper extremities as well as some motion artifact. FINDINGS: LOWER CHEST: See separate report of the CT of the chest. NON-CONTRASTED LIVER, SPLEEN, ADRENALS: Evaluation limited by lack of IV contrast. No identified sign ificant masses. PANCREAS: No masses. No peripancreatic inflammatory changes. GALLBLADDER: No identified stones by CT criteria. No inflammatory changes to suggest cholecystitis. RIGHT KIDNEY AND URETER: No suspicious masses. Assessment limited by lack of IV contrast. Possible punctate nonobstructing calculus interpolar right kidney. No hydronephrosis or hydroureter. LEFT KIDNEY AND URETER: No suspicious masses. Assessment limited by lack of IV contrast. 4 mm nonob structing calculus interpolar left kidney. Probable additional punctate nonobstructing calculus lowe r pole left kidney. Additional calcifications are probably vascular. No hydronephrosis or hydroure ter. AORTA AND RETROPERITONEUM: No aneurysm. No retroperitoneal masses or adenopathy. BOWEL AND PERITONEAL CAVITY: Stomach is distended, but otherwise unremarkable. There are some fluid within the lower esophageal lumen which could be due to gastroesophageal reflux. No small bowel dila tation. No significant colon wall thickening. APPENDIX: Normal. PELVIS, BLADDER, AND ABDOMINAL WALL:Prostate gland is enlarged. Urinary bladder is unremarkable. BONES: Compression fracture at T11. OTHER: No other significant finding. IMPRESSION: 1. Compression fracture at T11. See CT chest report for further details. 2. Gastric distention with findings suggestive of gastroesophageal reflux. 3. Enlarged prostate gland. COMMENT: Quality ID # [id number]: Final reports with documentation of one or more dose reduction techniques (e.g., Automated exposure control, adjustment of the mA and/or kV according to patient size, use of iterative reconstruction technique) TECHNICAL DOCUMENTATION: JOB ID: [id number] 2010 [employer]- All Rights Reserved Reading location - IP/workstation name: [email or web address]
[2020-07-29] MEDS ORDERED: FENTANYL CITRATE INJ/PF 100 MCG/2 ML AMPUL IV ONE (13:58)
[2020-07-29 14:02] LABS: ARTERIAL BLOOD BASE EXCESS -21.1 mmol/L; ARTERIAL BLOOD FIO2 ROOM AIR; ARTERIAL BLOOD H2CO3 0.38 mmol/L (1.05-1.35); ARTERIAL BLOOD HCO3 4.5 mmol/L (20-24); ARTERIAL BLOOD O2 SATURATION 98.1 % (94-98); ARTERIAL BLOOD TOTAL CO2 4.9 mmol/L (23-27)
[2020-07-29 14:05] LABS: HEMATOCRIT 49.4 % (37.9-51.0); HEMOGLOBIN 15.8 g/dL (13.5-17.0); MEAN CORPUSCULAR HGB CONC 32.1 g/dL (32.0-36.0); MEAN CORPUSCULAR VOLUME 97 fl (80-97); PLATELET COUNT 376 10^3/uL (150-450); RED BLOOD COUNT 5.12 10^6/uL (4.35-5.55); RED CELL DISTRIBUTION WIDTH 13.3 % (11.5-14.0); WHITE BLOOD COUNT 27.6 10^3/uL (4.0-10.5)
[2020-07-29 14:07] LABS: ARTERIAL BLOOD PCO2 12.7 mmHg (35-45); ARTERIAL BLOOD PH 7.17 (7.35-7.45)
[2020-07-29 14:20] LABS: ALBUMIN 4.2 g/dL (3.5-5.0); ALKALINE PHOSPHATASE 174 U/L (38-126); ASPARTATE AMINO TRANSFERASE 21 U/L (17-59); BILIRUBIN,DIRECT 0.4 mg/dL (0.0-0.4); BILIRUBIN,TOTAL 0.7 mg/dL (0.2-1.3); BLOOD UREA NITROGEN 64 mg/dL (7-20); CALCIUM 10.4 mg/dL (8.4-10.2); CHLORIDE 95 mmol/L (98-107); CREATINE KINASE 160 U/L (55-170)
[2020-07-29 14:22] LABS: ALCOHOL < 10 mg/dL (NONE DETECTED)
[2020-07-29 14:31] LABS: GLUCOSE 1025 mg/dL (75-110)
[2020-07-29 14:32] LABS: ABSOLUTE LYMPHOCYTES# (MANUAL) 1.1 10^3/uL (0.5-4.7); ABSOLUTE MONOCYTES # (MANUAL) 1.7 10^3/uL (0.1-1.4); BASOPHILS % (MANUAL) 0 % (0-2); CARBON DIOXIDE < 5 mmol/L (22-30); EOSINOPHILS % (MANUAL) 0 % (0-6); LYMPHOCYTES % (MANUAL) 4 % (13-45); MONOCYTES % (MANUAL) 6 % (3-13); POTASSIUM 2.7 mmol/L (3.6-5.0); SEGMENTED NEUTROPHILS % (MAN) 90 % (42-78); TOTAL CELLS COUNTED 100
[2020-07-29 14:33] LABS: PLATELET COMMENT ADEQUATE; RBC MORPHOLOGY COMMENT NORMO-CYTIC/CHROMIC
[2020-07-29] MEDS ORDERED: INSULIN REG, HUMAN 100 UNIT/ML 3 ML VIAL (PYX) IV ONE (14:50)
[2020-07-29] MEDS ORDERED: NORMAL SALINE 100 ML with INSULIN REGULAR, HUMAN 100 UNIT IV PRN ×2 (14:53)
[2020-07-29] MEDS ORDERED: NORMAL SALINE 1000 ML 1,000 ML IV PRN (15:16)
[2020-07-29] MEDS ORDERED: POTASSI CL 20 MEQ/50 ML RIDER 20 MEQ/50 ML RTUPB IV ONE ×2 (15:50→17:59)
[2020-07-29] MEDS ORDERED: NORMAL SALINE INJ/PF 0.9% 10 ML SDV IV PRN (15:59)
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
[2020-07-29] MEDS ORDERED: POTASSI CL 40 MEQ/NS 1L 1,000 ML IV PRN (16:21)
[2020-07-29] MEDS ORDERED: DEXTROSE 40% GEL 15 GM TUBE PO PRN ×2 (16:21)
[2020-07-29] MEDS ORDERED: DEXTROSE 50%-WATER 25 GM/50 ML DISP.SYRIN IV PRN ×2 (16:21)
[2020-07-29] MEDS ORDERED: GLUCAGON,HUMAN RECOMB 1 MG INJ IM PRN (16:21)
[2020-07-29] MEDS ORDERED: PANTOPRAZOLE SODIUM 40 MG VIAL IV ONE (17:15)
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
--- NOTE | 2020-07-29 18:51 | RADIOLOGY REPORT (SQ) ---
EXAM DESCRIPTION: CHEST SINGLE VIEW IMAGES COMPLETED DATE/TIME: 07/29/2020 3:37 pm REASON FOR STUDY: s/p central line and iv fluids COMPARISON: CT chest same date and single-view chest 08/03/2018. EXAM PARAMETERS: NUMBER OF VIEWS: One view. TECHNIQUE: Single frontal radiographic view of the chest acquired. RADIATION DOSE: NA LIMITATIONS: External leads partially obscure underlying structures. FINDINGS: LUNGS AND PLEURA: No opacities, masses or pneumothorax. No pleural effusion. MEDIASTINUM AND HILAR STRUCTURES: No masses. Contour normal. HEART AND VASCULAR STRUCTURES: Heart normal in size. Normal vasculature. BONES: No acute findings. Osseous demineralization. HARDWARE: None in the chest. OTHER: No other significant finding. IMPRESSION: No acute radiographic abnormality. TECHNICAL DOCUMENTATION: JOB ID: [id number] [employer]- All Rights Reserved Reading location - IP/workstation name: [email or web address]
[2020-07-29 19:46] LABS: APPEARANCE,URINE SLIGHTLY-CLOUDY; BILIRUBIN,URINE NEGATIVE (NEGATIVE); COLOR,URINE YELLOW; GLUCOSE, URINE >=500 mg/dL (NEGATIVE); KETONES,URINE 80 mg/dL (NEGATIVE); LEUKOCYTE ESTERASE,URINE NEGATIVE (NEGATIVE); NITRITE,URINE NEGATIVE (NEGATIVE); PROTEIN,URINE 100 mg/dL (NEGATIVE); URINE SPECIFIC GRAVITY 1.021; UROBILINOGEN,URINE NEGATIVE mg/dL (<2.0)
[2020-07-29 19:55] LABS: URINE AMPHETAMINES SCREEN NEGATIVE; URINE BARBITURATES SCREEN NEGATIVE; URINE BENZODIAZEPINES SCREEN NEGATIVE; URINE COCAINE SCREEN NEGATIVE; URINE MARIJUANA (THC) SCREEN NEGATIVE; URINE METHADONE SCREEN NEGATIVE; URINE PHENCYCLIDINE SCREEN NEGATIVE
--- NOTE | 2020-07-29 20:41 | EKG REPORT ---
SEVERITY:- ABNORMAL ECG - SINUS TACHYCARDIA PAIRED VENTRICULAR PREMATURE COMPLEXES FIRST DEGREE AV BLOCK ALESSIA, CONSIDER BIATRIAL ABNORMALITIES NONSPECIFIC INTRAVENTRICULAR CONDUCTION DELAY INFERIOR INFARCT, AGE INDETERMINATE LATERAL INFARCT, AGE INDETERMINATE CONSIDER ANTERIOR INFARCT : Confirmed by: Mayelin Garcia MD 29-Jul-2020 20:40:53
[2020-07-29 20:44] LABS: BLOOD UREA NITROGEN 69 mg/dL (7-20); CALCIUM 8.8 mg/dL (8.4-10.2); PHOSPHORUS 5.6 mg/dL (2.5-4.5); POTASSIUM 3.3 mmol/L (3.6-5.0)
[2020-07-29 20:49] LABS: CHLORIDE 106 mmol/L (98-107)
[2020-07-29 20:59] LABS: ANION GAP 28 (5-19)
[2020-07-29 21:11] LABS: CARBON DIOXIDE 6 mmol/L (22-30); GLUCOSE 816 mg/dL (75-110)
[2020-07-29 22:01] LABS: ARTERIAL BLOOD BASE EXCESS -21.2 mmol/L; ARTERIAL BLOOD H2CO3 1.37 mmol/L (1.05-1.35); ARTERIAL BLOOD HCO3 10.4 mmol/L (20-24); ARTERIAL BLOOD O2 SATURATION 98.3 % (94-98); ARTERIAL BLOOD PCO2 45.5 mmHg (35-45); ARTERIAL BLOOD PO2 179.3 mmHg (80-100); ARTERIAL BLOOD TOTAL CO2 11.8 mmol/L (23-27)
[2020-07-29 22:02] LABS: ARTERIAL BLOOD FIO2 3L
[2020-07-29 22:03] LABS: ARTERIAL BLOOD PH 6.98 (7.35-7.45)
[2020-07-29] MEDS ORDERED: INSULIN REG, HUMAN 100 UNIT/ML 3 ML VIAL (PYX) ONE ×2 (22:47→23:01)
[2020-07-29] MEDS: NORMAL SALINE 100 ML with INSULIN REGULAR, HUMAN 100 UNIT IV PRN ×2 (22:58)
--- NOTE | 2020-07-30 00:04 | RADIOLOGY REPORT (SQ) ---
EXAM: CHEST SINGLE VIEW CLINICAL INDICATION: 60-year-old male with endotracheal tube placement. TECHNIQUE: Single view, AP portable chest was obtained. COMPARISON: 07/29/2020. FINDINGS: Unremarkable cardiac and mediastinal silhouette. Heart size is normal. Endotracheal tube terminates 16 mm above the level of the flower. Enteric tube terminates off the [id number] of the examination. Lungs are clear without focal opacity, pneumothorax or pleural effusions. The visualized bones are within normal limits. Gaseous distention of the stomach may be secondary to recent intubation. IMPRESSION: 1. No acute cardiopulmonary abnormalities. 2. Endotracheal tube terminates 16 mm above the level of the flower. 3. Enteric tube terminates off the [id number] of the examination.
--- NOTE | 2020-07-30 00:05 | Operative Report ---
Bedside Procedure - History of Present Illness History of Present Illness: Indication: Respiratory Failure Procedure automatic lehr operator: JEAN Saleh Attending physician: Dr. Cardenas Consent: The procedure was performed emergently and the permission was implied because of the emergent nature. Procedure summary: A timeout was performed. My hands were washed immediately prior to the procedure. I were surgical cap, mask with protective eyewear, gown and gloves throughout the procedure. The patient was placed on a property assessment monitor including continuous pulse oximetry. Rapid sequence intubation was conducted. The patient was obtunded and required no medications for sedation and paralysis during procedure. Using a MAC 4 glide scope guided laryngoscope and a size 8.0 endotracheal tube with stylette, the patient was intubated on the first attempt. The stylette was removed and the cuff balloon was inflated. Appropriate endotracheal tube position was confirmed by direct visualization of vocal cord passage, CO2 colorimetric indicator and symmetric breath sounds. The tube was secured at 24 centimeters at the lips. Post intubation chest x-ray results are pending Indication for Procedure: Respiratory failure, airway protection Provider: ESVIN HERNÁNDEZ - Intubation Orotracheal Time of Intubation: 23:20 Airway evaluation: Normal anatomy Mallampati Classification: Class 3 Intubation method: Orotracheal Blade type: Misbah Blade size: 4 Equipment used: Glidescope ETT size: 8.0 ETT secured at: Lips ETT secured at (cm): 24 Post Intubation Xray: Yes Intubation Complications: No complications
[2020-07-30 00:29] LABS: BLOOD UREA NITROGEN 77 mg/dL (7-20); CALCIUM 9.1 mg/dL (8.4-10.2); POTASSIUM 4.2 mmol/L (3.6-5.0)
[2020-07-30 00:35] LABS: CHLORIDE 108 mmol/L (98-107)
[2020-07-30 00:45] LABS: CARBON DIOXIDE 9 mmol/L (22-30); GLUCOSE 844 mg/dL (75-110)
[2020-07-30 00:48] LABS: ANION GAP 26 (5-19)
[2020-07-30] MEDS: NORMAL SALINE 1000 ML 1,000 ML IV PRN ×2 (01:00→08:14)
[2020-07-30] MEDS: HEPARIN SOD (PORCINE) 5,000 UNIT/ML 1 ML VIAL SUBCUT SCH ×4 (01:01→21:35)
[2020-07-30] MEDS ORDERED: NORMAL SALINE 1000 ML 1,000 ML IV PRN (01:15)
[2020-07-30 02:09] LABS: ARTERIAL BLOOD BASE EXCESS -16.1 mmol/L; ARTERIAL BLOOD FIO2 60%; ARTERIAL BLOOD H2CO3 0.76 mmol/L (1.05-1.35); ARTERIAL BLOOD HCO3 9.9 mmol/L (20-24); ARTERIAL BLOOD O2 SATURATION 99.6 % (94-98); ARTERIAL BLOOD PCO2 25.1 mmHg (35-45); ARTERIAL BLOOD PH 7.21 (7.35-7.45); ARTERIAL BLOOD PO2 320.8 mmHg (80-100); ARTERIAL BLOOD TOTAL CO2 10.7 mmol/L (23-27)
[2020-07-30 02:40] LABS: ANION GAP 19 (5-19); BLOOD UREA NITROGEN 79 mg/dL (7-20); CALCIUM 8.7 mg/dL (8.4-10.2); CARBON DIOXIDE 11 mmol/L (22-30); CHLORIDE 117 mmol/L (98-107); POTASSIUM 3.4 mmol/L (3.6-5.0)
[2020-07-30 02:43] LABS: GLUCOSE 608 mg/dL (75-110)
[2020-07-30] MEDS ORDERED: METOPROLOL TARTRATE PF/INJ 5 MG/5 ML SDV IV PRN (04:16)
[2020-07-30 05:21] LABS: HEMATOCRIT 39.8 % (37.9-51.0); HEMOGLOBIN 13.8 g/dL (13.5-17.0); MEAN CORPUSCULAR HEMOGLOBIN 31.7 pg (27.0-33.4); MEAN CORPUSCULAR HGB CONC 34.6 g/dL (32.0-36.0); PLATELET COUNT 283 10^3/uL (150-450); RED BLOOD COUNT 4.35 10^6/uL (4.35-5.55); RED CELL DISTRIBUTION WIDTH 13.1 % (11.5-14.0)
[2020-07-30] MEDS: ACETAMINOPHEN 650 MG SUPP.RECT PR PRN ×2 (05:41→09:42)
[2020-07-30] MEDS ORDERED: NORMAL SALINE 1000 ML 1,000 ML IV ONE ×2 (05:44→14:00)
[2020-07-30] MEDS: NORMAL SALINE 100 ML with INSULIN REGULAR, HUMAN 100 UNIT IV PRN ×2 (05:47)
[2020-07-30 05:49] LABS: ALBUMIN 3.2 g/dL (3.5-5.0); ALKALINE PHOSPHATASE 136 U/L (38-126); ASPARTATE AMINO TRANSFERASE 22 U/L (17-59); BILIRUBIN,DIRECT 0.3 mg/dL (0.0-0.4); BILIRUBIN,TOTAL 0.6 mg/dL (0.2-1.3); BLOOD UREA NITROGEN 77 mg/dL (7-20); CARBON DIOXIDE 11 mmol/L (22-30); CHLORIDE 117 mmol/L (98-107); POTASSIUM 3.3 mmol/L (3.6-5.0); TOTAL PROTEIN 5.6 g/dL (6.3-8.2)
[2020-07-30 05:57] LABS: ANION GAP 20 (5-19); PHOSPHORUS 2.2 mg/dL (2.5-4.5)
[2020-07-30 05:58] LABS: GLUCOSE 442 mg/dL (75-110)
[2020-07-30 06:14] LABS: MEAN CORPUSCULAR VOLUME 92 fl (80-97)
[2020-07-30 06:18] LABS: ABSOLUTE LYMPHOCYTES# (MANUAL) 1.3 10^3/uL (0.5-4.7); ABSOLUTE MONOCYTES # (MANUAL) 0.9 10^3/uL (0.1-1.4); BAND NEUTROPHILS % (MANUAL) 1 % (3-5); BASOPHILS % (MANUAL) 0 % (0-2); EOSINOPHILS % (MANUAL) 0 % (0-6); LYMPHOCYTES % (MANUAL) 10 % (13-45); MONOCYTES % (MANUAL) 7 % (3-13); PLATELET COMMENT ADEQUATE; SEGMENTED NEUTROPHILS % (MAN) 82 % (42-78); TOTAL CELLS COUNTED 100
[2020-07-30 06:21] LABS: POIKILOCYTOSIS SLIGHT
[2020-07-30 06:22] LABS: RBC MORPHOLOGY COMMENT NORMO-CYTIC/CHROMIC
[2020-07-30] MEDS: DEXTROSE 5%-1/2 NORMAL SALINE 1,000 ML IV PRN ×2 (09:15→13:50)
[2020-07-30] MEDS: PANTOPRAZOLE SODIUM 40 MG VIAL IV SCH (09:42)
[2020-07-30 10:25] LABS: ANION GAP 12 (5-19); BLOOD UREA NITROGEN 81 mg/dL (7-20); CALCIUM 8.9 mg/dL (8.4-10.2); CARBON DIOXIDE 15 mmol/L (22-30); CHLORIDE 125 mmol/L (98-107); GLUCOSE 70 mg/dL (75-110); POTASSIUM 3.2 mmol/L (3.6-5.0)
[2020-07-30] MEDS ORDERED: NOREPINEPHRINE BITARTRATE INJ/PF 4 MG/4 ML SDV IV ONE (12:43)
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
[2020-07-30] MEDS: DEXTROSE 5%-WATER 250 ML with NOREPINEPHRINE BITARTRATE 4 MG IV PRN ×4 (14:07→23:24)
[2020-07-30 14:38] LABS: ANION GAP 12 (5-19); BLOOD UREA NITROGEN 79 mg/dL (7-20); CARBON DIOXIDE 12 mmol/L (22-30); CHLORIDE 124 mmol/L (98-107); GLUCOSE 175 mg/dL (75-110)
[2020-07-30 14:47] LABS: POTASSIUM 2.7 mmol/L (3.6-5.0)
[2020-07-30] MEDS: INSULIN GLARGINE,HUM.REC.ANLOG 1,000 UNIT/10 ML VIAL SUBCUT SCH (14:52)
[2020-07-30] MEDS ORDERED: VASOPRESSIN INJ 20 UNIT/1 ML VIAL ONE (16:15)
[2020-07-30] MEDS: DEXTROSE 5%-WATER 250 ML with VASOPRESSIN 100 UNIT IV PRN ×2 (16:29)
[2020-07-30] MEDS ORDERED: POTASSIUM CHLORIDE 10 MEQ TABLET.ER PO ONE (16:45)
[2020-07-30] MEDS ORDERED: POTASSIUM CHLORIDE 20 MEQ PACKET PO ONE (17:15)
[2020-07-30] MEDS ORDERED: DEXTROSE 50%-WATER 25 GM/50 ML DISP.SYRIN IV PRN ×4 (18:19→23:27)
[2020-07-30] MEDS ORDERED: GLUCAGON,HUMAN RECOMB 1 MG INJ IM PRN ×2 (18:19→23:27)
[2020-07-30] MEDS ORDERED: DEXTROSE 40% GEL 15 GM TUBE PO PRN ×4 (18:19→23:27)
[2020-07-30] MEDS ORDERED: INSULIN REG, HUMAN 100 UNIT/ML 3 ML VIAL (PYX) SUBCUT SCH (18:30)
[2020-07-30] MEDS ORDERED: ASPIRIN 81 MG TABLET, CHEWABLE ONE (18:32)
[2020-07-30] MEDS ORDERED: ASPIRIN 325 MG TABLET PO ONE (18:45)
[2020-07-30] MEDS: RINGERS SOLUTION,LACTATED 1,000 ML IV PRN (21:35)
[2020-07-30 22:31] LABS: ANION GAP 12 (5-19); BLOOD UREA NITROGEN 83 mg/dL (7-20); CALCIUM 7.5 mg/dL (8.4-10.2); CARBON DIOXIDE 12 mmol/L (22-30); CHLORIDE 118 mmol/L (98-107)
[2020-07-30 22:46] LABS: GLUCOSE 479 mg/dL (75-110); POTASSIUM 2.9 mmol/L (3.6-5.0)
[2020-07-31] MEDS ORDERED: INSULIN REG, HUMAN 100 UNIT/ML 3 ML VIAL (PYX) SUBCUT SCH
[2020-07-31] MEDS: INSULIN REG, HUMAN 100 UNIT/ML 3 ML VIAL (PYX) SUBCUT SCH ×5 (00:03→19:03)
[2020-07-31] MEDS: RINGERS SOLUTION,LACTATED 1,000 ML IV PRN ×4 (03:35→19:18)
[2020-07-31 04:19] LABS: BLOOD UREA NITROGEN 84 mg/dL (7-20); CALCIUM 7.9 mg/dL (8.4-10.2); CHLORIDE 119 mmol/L (98-107); GLUCOSE 388 mg/dL (75-110); POTASSIUM 3.2 mmol/L (3.6-5.0)
[2020-07-31 04:24] LABS: ANION GAP 15 (5-19)
[2020-07-31 04:30] LABS: CARBON DIOXIDE 10 mmol/L (22-30)
[2020-07-31 05:05] LABS: PHOSPHORUS 3.8 mg/dL (2.5-4.5)
[2020-07-31] MEDS: HEPARIN SOD (PORCINE) 5,000 UNIT/ML 1 ML VIAL SUBCUT SCH ×3 (05:06→22:54)
[2020-07-31] MEDS: INSULIN GLARGINE,HUM.REC.ANLOG 1,000 UNIT/10 ML VIAL SUBCUT SCH ×2 (05:26→20:37)
[2020-07-31 06:26] LABS: ABSOLUTE LYMPHOCYTES (AUTO) 0.5 10^3/uL (0.5-4.7); ABSOLUTE MONOCYTES (AUTO) 0.2 10^3/uL (0.1-1.4); ABSOLUTE NEUT (AUTO) 4.3 10^3/uL (1.7-8.2); BASOPHILS % (AUTO) 0.2 % (0-2); HEMOGLOBIN 11.8 g/dL (13.5-17.0); LYMPHOCYTES % (AUTO) 9.7 % (13-45); MEAN CORPUSCULAR HEMOGLOBIN 31.6 pg (27.0-33.4); MEAN CORPUSCULAR HGB CONC 33.6 g/dL (32.0-36.0); MEAN CORPUSCULAR VOLUME 94 fl (80-97); MONOCYTES % (AUTO) 4.4 % (3-13); PLATELET COUNT 163 10^3/uL (150-450); RED BLOOD COUNT 3.73 10^6/uL (4.35-5.55); RED CELL DISTRIBUTION WIDTH 13.4 % (11.5-14.0); SEGMENTED NEUTROPHILS % (AUTO) 85.7 % (42-78); TOTAL CELLS COUNTED % (AUTO) 100 %
[2020-07-31] MEDS ORDERED: NOREPINEPHRINE BITARTRATE INJ/PF 4 MG/4 ML SDV IV ONE (09:38)
[2020-07-31] MEDS: DEXTROSE 5%-WATER 250 ML with NOREPINEPHRINE BITARTRATE 4 MG IV PRN ×4 (10:55→18:36)
[2020-07-31] MEDS: PANTOPRAZOLE SODIUM 40 MG VIAL IV SCH (11:01)
[2020-07-31 11:57] LABS: ANION GAP 10 (5-19); BLOOD UREA NITROGEN 86 mg/dL (7-20); CALCIUM 7.7 mg/dL (8.4-10.2); CARBON DIOXIDE 13 mmol/L (22-30); CHLORIDE 117 mmol/L (98-107); GLUCOSE 322 mg/dL (75-110); POTASSIUM 3.3 mmol/L (3.6-5.0)
--- NOTE | 2020-07-31 16:09 | RADIOLOGY REPORT (SQ) ---
EXAM DESCRIPTION: CT HEAD WITHOUT IMAGES COMPLETED DATE/TIME: 07/31/2020 3:54 pm REASON FOR STUDY: Unresponsive. Compare to 07/21 CT COMPARISON: 07/29/2020. TECHNIQUE: Axial images acquired through the brain without intravenous contrast. Images reviewed wi th bone, brain and subdural windows. Additional sagittal and coronal reconstructions were generated. Images stored on PACS. All CT scanners at this facility use dose modulation, iterative reconstruction, and/or weight based d osing when appropriate to reduce radiation dose to as low as reasonably achievable (ALARA). [facility]: Dose Right [facility]: CareDose [facility]: Dose Right [facility]: Teradose 4D [facility]: [employer] RADIATION DOSE: CT Rad equipment meets quality standard of care and radiation dose reduction techniq ues were employed. CTDIvol: 49.1 mGy. DLP: 1183 mGy-cm.mGy. LIMITATIONS: None. FINDINGS: VENTRICLES: Prominent. CEREBRUM: No masses. No hemorrhage. No midline shift. Areas of low density in the white matter mos t likely due to chronic micro-vascular ischemic change. No evidence for acute infarction. CEREBELLUM: No masses. No hemorrhage. No alteration of density. There are new small areas of decre ased attenuation in the right and left inferior cerebellar hemispheres. EXTRAAXIAL SPACES: Age-related involutional change. No fluid collections. No masses. ORBITS AND GLOBE: No intra- or extraconal masses. Normal contour of globe without masses. CALVARIUM: No fracture. PARANASAL SINUSES: No fluid or mucosal thickening. SOFT TISSUES: No mass or hematoma. OTHER: No other significant finding. IMPRESSION: CHRONIC CHANGES OF ATROPHY AND MICROVASCULAR ISCHEMIA. NEW AREAS OF DECREASED ATTENUATI ON IN THE RIGHT AND LEFT INFERIOR CEREBELLAR HEMISPHERES CONSISTENT WITH RECENT INFARCT. THE PREVIOU SLY SEEN AREA OF FAINT DECREASED ATTENUATION IN THE INFERIOR LEFT FRONTAL LOBE IS MOST LIKELY BEAM CALL[place]AN RDENING ARTIFACT FROM THE ADJACENT SKULLBASE. EVIDENCE OF ACUTE STROKE: YES. RIGHT AND LEFT VERTEBROBASILAR. COMMENT: The findings were sent to the Radiology Results Communication Center at 16:02 on 0 to be communicated to a licensed caregiver. TECHNICAL DOCUMENTATION: JOB ID: [id number] Quality ID # [id number]: Final reports with documentation of one or more dose reduction techniques (e.g., Au tomated exposure control, adjustment of the mA and/or kV according to patient size, use of iterative reconstruction technique) 2010 [employer]- All Rights Reserved Reading location - IP/workstation name: [email or web address]
[2020-07-31] MEDS: MINERAL OIL/PETROLATUM,WHITE OPH OINT 3.5 GM OU PRN (16:36)
[2020-07-31 17:06] LABS: ANION GAP 14 (5-19); BLOOD UREA NITROGEN 89 mg/dL (7-20); CALCIUM 7.7 mg/dL (8.4-10.2); CARBON DIOXIDE 12 mmol/L (22-30); CHLORIDE 114 mmol/L (98-107); GLUCOSE 288 mg/dL (75-110); POTASSIUM 4.2 mmol/L (3.6-5.0)
[2020-07-31 19:45] LABS: ANION GAP 15 (5-19); BLOOD UREA NITROGEN 89 mg/dL (7-20); CALCIUM 7.6 mg/dL (8.4-10.2); CARBON DIOXIDE 12 mmol/L (22-30); CHLORIDE 114 mmol/L (98-107); GLUCOSE 266 mg/dL (75-110); POTASSIUM 4.5 mmol/L (3.6-5.0)
[2020-07-31] MEDS: DEXTROSE 5%-WATER 250 ML with VASOPRESSIN 100 UNIT IV PRN ×2 (20:37)
[2020-08-01] MEDS: INSULIN REG, HUMAN 100 UNIT/ML 3 ML VIAL (PYX) SUBCUT SCH ×3 (00:26→12:00)
[2020-08-01] MEDS: DEXTROSE 5%-WATER 250 ML with NOREPINEPHRINE BITARTRATE 4 MG IV PRN ×6 (00:31→08:27)
[2020-08-01] MEDS: RINGERS SOLUTION,LACTATED 1,000 ML IV PRN ×3 (01:25→11:38)
[2020-08-01] MEDS ORDERED: DEXTROSE 5%-WATER 250 ML with NOREPINEPHRINE BITARTRATE 4 MG IV PRN ×2 (04:32)
[2020-08-01] MEDS ORDERED: ATROPINE SULFATE INJ 1 MG/10 ML DISP.SYRIN IV ONE (05:00)
[2020-08-01] MEDS ORDERED: EPINEPHRINE INJ 1 MG/10 ML DISP.SYRIN ONE (05:00)
[2020-08-01 05:20] LABS: ANION GAP 14 (5-19); BLOOD UREA NITROGEN 92 mg/dL (7-20); CALCIUM 7.5 mg/dL (8.4-10.2); CARBON DIOXIDE 12 mmol/L (22-30); CHLORIDE 114 mmol/L (98-107); GLUCOSE 174 mg/dL (75-110); POTASSIUM 4.8 mmol/L (3.6-5.0)
[2020-08-01] MEDS: HEPARIN SOD (PORCINE) 5,000 UNIT/ML 1 ML VIAL SUBCUT SCH ×2 (06:28→13:59)
[2020-08-01] MEDS: INSULIN GLARGINE,HUM.REC.ANLOG 1,000 UNIT/10 ML VIAL SUBCUT SCH (06:28)
[2020-08-01] MEDS: PANTOPRAZOLE SODIUM 40 MG VIAL IV SCH (10:10)
[2020-08-01] MEDS: MINERAL OIL/PETROLATUM,WHITE OPH OINT 3.5 GM OU PRN (10:12)
[2020-08-01] MEDS ORDERED: ATROPINE SULFATE INJ 1 MG/1 ML VIAL ONE (14:47)
[2020-08-01 15:44] VITALS: BP 76/63
--- NOTE | 2020-08-01 21:57 | Death Summary ---
Summary Date : 08/01/20 Time of :: 14:48 Autopsy: No Resuscitation Status: Do Not Resuscitate Hospital Course:: Patiently initially admitted with metabolic derangement thought to be secondary to DKA. On admission to the intensive care unit he was obtunded and was immediately intubated for airway protection and insufficient respirations. Over the past 48 hours he has not shown any signs of neurologic recovery. A CT scan was performed which found an acute infarct. Family was made aware of his situation and they presented his living well and advance directives. Patient stated in his documentation that he would not want to be resuscitated and would not want prolonged mechanical ventilation in such the event. He also stated that he was interested in organ donation. Organ donor network was called and initiation of brain protocol was done. Unfortunately, prior to completion of the brain protocol, patient became asystolic. As per the patient's known wishes and with the family's consent, including his healthcare power of estate planning attorney, we did not attempt cardiac resuscitation. Patient's family was then made aware of his .
== END 2020-08-01 14:49 | DRG 64 ==
LOC: ER 12:06 → EH 16:36 → ICU 22:35
PROVIDERS: ADMIT Internal Medicine Critical Care Medicine; ATTEND Internal Medicine Critical Care Medicine
PROC: 0BH17EZ Insertion of Endotracheal Airway into Trachea, Via Natural or Artificial Opening (ICD-10-PCS; principal; 2020-07-29)
PROC: 06HM33Z Insertion of Infusion Device into Right Femoral Vein, Percutaneous Approach (ICD-10-PCS; 2020-07-29)
PROC: B54BZZA Ultrasonography of Right Lower Extremity Veins, Guidance (ICD-10-PCS; 2020-07-29)
PROC: 5A1945Z Respiratory Ventilation, 24-96 Consecutive Hours (ICD-10-PCS; 2020-07-29)
DX: I63.9 Cerebral infarction, unspecified (principal); E11.10 Type 2 diabetes mellitus with ketoacidosis without coma; E87.0 Hyperosmolality and hypernatremia; I69.354 Hemiplegia and hemiparesis following cerebral infarction affecting left non-dominant side; S22.080A Wedge compression fracture of T11-T12 vertebra, initial encounter for closed fracture; M54.5 Low back pain; L90.5 Scar conditions and fibrosis of skin; E87.6 Hypokalemia; I10 Essential (primary) hypertension; M79.89 Other specified soft tissue disorders; F17.200 Nicotine dependence, unspecified, uncomplicated; F32.9 Major depressive disorder, single episode, unspecified; Z20.828 Contact with and (suspected) exposure to other viral communicable diseases; Z98.42 Cataract extraction status, left eye; Z98.41 Cataract extraction status, right eye; Z96.1 Presence of intraocular lens; Z79.4 Long term (current) use of insulin; Z66 Do not resuscitate; Z91.81 History of falling; Z87.828 Personal history of other (healed) physical injury and trauma; X58.XXXA Exposure to other specified factors, initial encounter
CPT/HCPCS: 31500; 36415; 70450; 71045; 71250; 72125; 74176; 80048; 80053; 80076; 80307; 81001; 82533; 82550; 82803; 82962; 83036; 83690; 83735; 84100; 84443; 84484; 85025; 93005; 93010; 94002; 94003; 96361; 96374; 99285; 99291; 0241U; C9113; C9803; J0171; J0461; J1642; J1644; J1815; J3010; J3480; J3490; J7030; J7060; J7120; J7121